=== PATIENT | male | born 1945 | race Caucasian/White ===

== ENCOUNTER 2023-04-12 04:56 | Inpatient (IN) | payer OTHER, SELFPAY ==
[2022-12-29 07:43] VITALS: BP 102/50; BP 122/56; BP 134/66; BMI 34.3
[2023-04-12] VITALS (11 sets, daily range): BP systolic 127–175; BP diastolic 47–73; PULSE 50–65; RESP 13–21; TEMP 36.6–37.3; O2SAT 93–99; BMI 35.0
--- NOTE | 2023-04-12 | ECG_ITS ---
Test Reason : FALL Blood Pressure : / mmHG Vent. Rate : 050 BPM Atrial Rate : 000 BPM P-R Int : 000 ms QRS Dur : 146 ms QT Int : 508 ms P-R-T Axes : 000 -43 005 degrees QTc Int : 463 ms Sinus bradycardia Left axis deviation Right bundle branch block Inferior infarct , age undetermined Abnormal ECG When compared with ECG of 15-JAN-2013 03:21, Vent. rate has decreased BY 37 BPM QRS duration has increased Referred By: Generic ED Physician Electronically Signed By:MEI LOVE
--- NOTE | ~2023-04-12 | XR_ITS ---
EXAMINATION: XR CHEST XR LEFT HIP/PELVIS CLINICAL INFORMATION: Status post fall. Chest pain. Left hip pain. COMPARISON: 01/15/2013 TECHNIQUE: 2 views of the chest were obtained. AP view of the pelvis was obtained. 2 views of the left hip were obtained. FINDINGS: Chest: The hemithoraces are clear without confluent consolidation. There is a stent at the aortic root. Cardiac silhouette appears prominent. No significant pleural effusion. There is a nonspecific sclerotic focus within the left proximal humerus. Pelvis/Left hip: Comminuted impacted intertrochanteric fracture of the left femur. The femoral head remains seated within the acetabulum. There is distraction of the lesser trochanter fragment. Regional soft tissue swelling. The sacrum is mostly obscured by overlying bowel gas. The pubic symphysis is intact. There is mild cartilage space loss of the right hip. XR/XR hip LT w PEL1V IMPRESSION: As above.
--- NOTE | ~2023-04-12 | CT_ITS ---
EXAMINATION: CT HEAD WITHOUT CONTRAST CT CERVICAL SPINE WITHOUT CONTRAST CLINICAL INFORMATION: Head injury. Patient on blood thinners. Pain. COMPARISON: None available. TECHNIQUE: Contiguous axial imaging was performed through the head and cervical spine without intravenous administration of contrast. This CT examination was performed using dose optimization techniques as appropriate, variously including the following: *Automated exposure control *Adjustment of mA and/or kV according to patient size (this includes techniques or standardized protocols for targeted exams where dose is matched to indication/reason for exam; i.e. extremities or head) *Use of iterative reconstruction technique DLP: 1364 mGy-cm FINDINGS: The lateral, third and fourth ventricles are normally outlined. The cortical sulci and basal cisterns are normally outlined as well. There is minimal bilateral periventricular and central white matter diminished attenuation. There is no acute territorial defect, hemorrhage or midline shift. The extra-axial spaces are unremarkable. Calvarium: Intact. Maxillofacial sinuses and mastoids: Clear as visualized. Cervical spine: There is straightening of the expected cervical spine curvature. There is moderate diffuse cervical disc degenerative change with loss of disc space, endplate change and posterior osteophytes associated with diffuse moderate facet osteoarthritic hypertrophic change with multilevel mild spinal canal and multilevel [id number] neuroforaminal narrowing. The there is no fracture. The soft tissues are unremarkable. In the upper lung adams are clear. CT/CT cervical spine wo IV con IMPRESSION: No acute intracranial abnormality. Cervical disc degenerative change. No fracture.
--- NOTE | ~2023-04-12 | XR_ITS ---
EXAMINATION: XR CHEST XR LEFT HIP/PELVIS CLINICAL INFORMATION: Status post fall. Chest pain. Left hip pain. COMPARISON: 01/15/2013 TECHNIQUE: 2 views of the chest were obtained. AP view of the pelvis was obtained. 2 views of the left hip were obtained. FINDINGS: Chest: The hemithoraces are clear without confluent consolidation. There is a stent at the aortic root. Cardiac silhouette appears prominent. No significant pleural effusion. There is a nonspecific sclerotic focus within the left proximal humerus. Pelvis/Left hip: Comminuted impacted intertrochanteric fracture of the left femur. The femoral head remains seated within the acetabulum. There is distraction of the lesser trochanter fragment. Regional soft tissue swelling. The sacrum is mostly obscured by overlying bowel gas. The pubic symphysis is intact. There is mild cartilage space loss of the right hip. XR/XR chest 1V IMPRESSION: As above.
--- NOTE | ~2023-04-12 | FL_ITS ---
EXAMINATION: XR FL WITH IMAGES CLINICAL INFORMATION: ORIF left hip. COMPARISON: None available. TECHNIQUE: Fluoroscopy Supervised By: Tech KV. Fluoroscopy Time: 1.1 minute. Cumulative Dose: 61.0 mGy. DAP: 1.04 Gycm2. Images: 4. FINDINGS: Imaging shows placement of an intramedullary cathy and screw in the left femur with an intertrochanteric fracture. FL/FL guidance in OR IMPRESSION: Fluoroscopy provided for ORIF left intertrochanteric fracture. Please see Dr. Kapil Law's procedure report for complete details.
--- NOTE | ~2023-04-12 | CT_ITS ---
EXAMINATION: CT HEAD WITHOUT CONTRAST CT CERVICAL SPINE WITHOUT CONTRAST CLINICAL INFORMATION: Head injury. Patient on blood thinners. Pain. COMPARISON: None available. TECHNIQUE: Contiguous axial imaging was performed through the head and cervical spine without intravenous administration of contrast. This CT examination was performed using dose optimization techniques as appropriate, variously including the following: *Automated exposure control *Adjustment of mA and/or kV according to patient size (this includes techniques or standardized protocols for targeted exams where dose is matched to indication/reason for exam; i.e. extremities or head) *Use of iterative reconstruction technique DLP: 1364 mGy-cm FINDINGS: The lateral, third and fourth ventricles are normally outlined. The cortical sulci and basal cisterns are normally outlined as well. There is minimal bilateral periventricular and central white matter diminished attenuation. There is no acute territorial defect, hemorrhage or midline shift. The extra-axial spaces are unremarkable. Calvarium: Intact. Maxillofacial sinuses and mastoids: Clear as visualized. Cervical spine: There is straightening of the expected cervical spine curvature. There is moderate diffuse cervical disc degenerative change with loss of disc space, endplate change and posterior osteophytes associated with diffuse moderate facet osteoarthritic hypertrophic change with multilevel mild spinal canal and multilevel [id number] neuroforaminal narrowing. The there is no fracture. The soft tissues are unremarkable. In the upper lung adams are clear. CT/CT head/brain wo IV con IMPRESSION: No acute intracranial abnormality. Cervical disc degenerative change. No fracture.
[2023-04-12 05:56] LABS: MANUAL DIFF FLAG NO
[2023-04-12 05:57] LABS: Basophils Percent Auto 0.3 % (0-2); Eosinophils Absolute Auto 0.1 X10*3/uL (0.0-0.4); Hematocrit 32.7 % (42.0-52.0); Hemoglobin 9.7 g/dl (14.0-18.0); Imm Gran Abs Auto 0.04 X10*3/uL (0.00-0.03); Imm Gran Pct Auto 0.4 % (0.0-0.4); Lymphocytes Absolute Auto 0.8 X10*3/uL (1.2-4.9); Lymphocytes Percent Auto 7.6 % (20-40); Mean Corpuscular HGB Conc 29.7 g/dl (31.0-36.0); Mean Corpuscular Hemoglobin 27.4 pg (27.0-33.0); Mean Corpuscular Volume 92.4 fL (80.0-98.0); Mean Platelet Volume 9.7 fL (9.4-12.4); Monocytes Absolute Auto 0.7 X10*3/uL (0.1-1.2); Monocytes Percent Auto 6.8 % (2-11); Neutrophils Absolute Auto 8.8 x10*3/uL (2.0-8.3); Neutrophils Percent Auto 83.9 % (45-73); Platelet Count 169 X10*3/uL (160-400); Red Blood Count 3.54 X10*6/uL (4.60-5.80); Red Cell Distribution Width 16.6 % (11.0-16.0); White Blood Count 10.5 X10*3/uL (4.8-10.8)
[2023-04-12 06:14] LABS: Alanine Aminotransferase 9 U/L (0-40); Albumin Level 3.6 g/dL (3.5-5.0); Alkaline Phosphatase 71 U/L (39-117); Anion Gap 12 (12-20); Aspartate Amino Transferase 18 U/L (5-37); Bilirubin Total 0.5 mg/dL (0.0-1.0); Blood Urea Nitrogen 22 mg/dL (9-16); Calcium 8.8 mg/dL (8.4-10.2); Carbon Dioxide 25 mmol/L (22-29); Chloride 111 mmol/L (96-108); Creatinine Clr Calc Pharmacy 62.6; Estimated Glomerular Filt Rate 48; Glucose Random 137 mg/dL (60-115); Lipase 40 U/L (8-78); Potassium 3.7 mmol/L (3.3-5.1); Sodium 144 mmol/L (135-145); Total Protein 6.2 g/dL (6.5-8.0)
[2023-04-12 06:21] LABS: COVID-19 Test Negative (Negative); IDNOW Serial# BCCEAD1C; INTERNATIONAL NORM RATIO 1.7 (0.9-1.1); Prothrombin Time 20.5 SEC (11.1-13.3)
[2023-04-12 06:24] LABS: Partial Thromboplastin Time 32.8 SEC (26.0-36.4)
--- NOTE | 2023-04-12 06:51 | ED.FALL ---
HPI - Fall General Chief Complaint: Fall Stated Complaint: fall Time Seen by Provider: 04/12/23 06:40 Source: patient and EMS Mode of arrival: EMS Limitations: no limitations History of Present Illness HPI Narrative: 77 yo male with PMHx significant for afib on Xarelto presents to the ED via EMS s/p mechanical fall after slipping on water in the bathroom at 0330 this morning. Patient reports falling down onto his left side, was unable to stand or ambulate afterwards. Reports hitting his head. On AC. Admits to 05/04 left hip pain, received fentanyl EN route via EMS. His only complaint in the ED is right hip pain and inability to move his right leg secondary to pain. Denies headache, vision changes, speech changes, chest pain, SOB, neck or back pain, abdominal pain, bowel or bladder incontinence or retention, or tingling/numbness/weakness of the extremity. Related Data Home Medications Medication Instructions Recorded Confirmed amiodarone 200 mg tablet 100 mg PO DAILY 04/12/23 04/12/23 ferrous sulfate 324 mg (65 mg 324 mg PO DAILY 04/12/23 04/12/23 iron) tablet,delayed release furosemide 40 mg tablet 40 mg PO BID 04/12/23 04/12/23 metoprolol tartrate 37.5 mg tablet 37.5 mg PO BID 04/12/23 04/12/23 rivaroxaban 20 mg tablet (Xarelto) 20 mg PO DAILY@1700 04/12/23 04/12/23 simvastatin 20 mg tablet 20 mg PO BEDTIME 04/12/23 04/12/23 Allergies Allergy/AdvReac Type Severity Reaction Status Date / Time No Known Allergies Allergy Unverified 04/11/20 18:33 Review of Systems Review of Systems: Constitutional: No fever, No chills, No fatigue, No malaise ENT/Mouth: No ear pain, No hearing loss, No nasal congestion, No sinus pain, No rhinorrhea, No sore throat Eyes: No eye pain, No swelling, No redness, No vision changes, No foreign body, No discharge Cardio: No chest pain, No palpitations, No dyspnea on exertion, No orthopnea, No edema Respiratory: No SOB, No cough, No sputum, No wheezing, No dyspnea, No hemoptysis GI: No nausea, No vomiting, No hematemesis, No abdominal pain, No diarrhea, No constipation, No hematochezia, No melena : No irregular bleeding, No dysuria, No frequency, No urgency, No hesitancy, No hematuria, No flank pain, No urinary flow changes, No urinary incontinence or retention MSK: No back pain, No neck pain, + joint pain, No myalgias Skin: No skin lesions, No rashes Neuro: No weakness, No numbness, No paresthesias, No LOC, No dizziness, No headache All other systems reviewed are negative. [facility] Past Medical History Attestation statement: The following information was validated with the patient. Source: old records reviewed and nursing notes reviewed Social History Social History Alcohol intake: former Patient Tobacco Use Status: Former Tobacco user service: No Physical Exam Vital Signs: Vital Signs: Last Vital Signs Temp 98.6 F 04/12/23 16:58 Pulse 62 04/12/23 16:58 Resp 16 04/12/23 16:58 BP 129/49 L 04/12/23 16:58 Pulse Ox 96 04/12/23 16:58 O2 Del Method Room Air 04/12/23 16:58 O2 Flow Rate 97 04/12/23 09:34 BMI result Body Mass Index 35.0 Vital signs stable General: Nontoxic appearing. NAD. Skin: Warm and dry. No rashes or lesions. Head: Normocephalic, atraumatic. EENT: PERRLA. EOM intact. Pharynx normal. Neck: Supple without LAD. Normal ROM. Trachea midline. Cardiac: Chest wall symmetric. RRR. S1 and S1 appreciated. No MRG. No JVD. Lungs: CTA bilaterally. No rales, rhonchi, or wheezes. Normal respiratory effort without accessory muscle use. No flail chest. Abdomen: No visible lesions or scars. Soft, non-tender, non-distended. No rebound tenderness or guarding. Normoactive BS x4. Spine: No midline spinous tenderness. No deformity or step off. Pelvis stable Ext: Upper extremities atraumatic with full ROM. Left LE shortened and externally rotated with decreased ROM of the left hip and left knee. RLE normal, atraumatic. Bilateral lower extremities with 2+ edema. Capillary refill <2 seconds throughout. 2+ DP/PT pulses. No cyanosis, ecchymosis, clubbing. Neuro: AO x3. Normal speech. CN 2-12 grossly intact. Strength 5/5 to upper extremities and RLE. Unable to assess RLE strength.. Sensation intact to light touch throughout. NV intact distally. Patient unable to stand or ambulate. Psych: Appropriate mood and affect. Responds appropriately to questions. Course Course Course Narrative: 726-- patient mildly anemic, no priors to compare to. No leukocytosis. Increased PT/INR secondary to anticoagulation. Chemistry without acute electrolyte abnormalities requiring intervention. COVID negative. CT head without intracranial pathology or bleed. CT C-spine without acute fracture. Chest x-ray and hip/pelvis x-ray pending. > patient with 10/10 left hip pain, given 100 mcg fentanyl EN route > will give 2g morphine 0835-- CXR unremarkable. X-ray of the pelvis/left hip with comminuted impacted intertrochanteric fracture of the left femur with the femoral head in the acetabulum. Soft tissue swelling. Pelvis intact. 45-- Discussed case with on-call orthopedic surgeon, Dr. Law, who recommends admitting patient to medicine with surgery scheduled for tomorrow pending clearance. Will hold Xarelto. Will reach out to hospitalist, Graciela Da Silva, to have patient admitted. 09-- Admitted to medicine > Hospitalist team via Rossi Da Silva will put in admission orders. Medications Administered Generic Name Dose Route Start Last Admin Trade Name Freq PRN Reason Stop Dose Admin Morphine Sulfate 2 mg 04/12/23 10:21 04/12/23 17:44 Morphine Sulfate 2 Mg/Ml Cartridge IVPUSH 2 mg Q4H PRN Administration moderate pain Protocol Sodium Chloride 3 ml 04/12/23 16:00 04/12/23 15:53 0.9 % Sodium Chloride Flush 3 Ml Syringe IVFLUSH 3 ml QSHIFT DANELLE Administration Discontinued Medications Generic Name Dose Route Start Last Admin Trade Name Freq PRN Reason Stop Dose Admin Amiodarone HCl 100 mg 04/12/23 15:55 04/12/23 16:06 Amiodarone Hcl 200 Mg Tablet PO 04/12/23 15:56 100 mg ONCE ONE Administration Morphine Sulfate 2 mg 04/12/23 07:24 04/12/23 07:32 Morphine Sulfate 2 Mg/Ml Cartridge IVPUSH 04/12/23 07:25 2 mg ONCE ONE Administration Protocol Medical Decision Making Medical Decision Making [facility] Narrative: 77 yo male with PMHx significant for afib on Xarelto presents to the ED via EMS s/p mechanical fall after slipping on water in the bathroom at 0330 this morning. Vital signs stable. Exam notable for LLE shortened and externally rotated, sensation intact to light touch throughout, NV intact distally, 2+ DP and PT pulses bilaterally, 2+ putting edema to b/l LE, no cyanosis. PERRLA. Lungs CTA bilaterally. Nonfocal exam. Unable to assess ambulation. Clinical concern for hip dislocation vs fracture. Unlikely pelvic fracture or instability. Concern for ICH vs skull fracture vs cervical fracture > will obtain imaging. Low suspicion for NV compromise, osteomyelitis, septic joint, compartment syndrome, or threat to limb. Differential Diagnosis Differential Diagnoses: The differential diagnosis associated with the presentation includes Clinical concern for hip dislocation vs fracture. Unlikely pelvic fracture or instability. Concern for ICH vs skull fracture vs cervical fracture > will obtain imaging. Low suspicion for NV compromise, osteomyelitis, septic joint, compartment syndrome, or threat to limb. Admission/Observation Consideration of admission/observation: Escalation of care including admission/observation considered This 77-year-old patient with intertrochanteric fracture will be admitted. Consult Healthcare Provider Management of the patient was discussed with: Hospitalist (Graciela Da Silva) and Gasfitter (Dr. Law (ortho)) Lab Data [facility] Lab Attestation statement: I reviewed the patient's lab results. See above course narrative. 04/12/23 05:45 04/12/23 05:45 Labs: Lab Results 04/12/23 04/12/23 Range/Units 05:45 05:49 WBC 10.5 (4.8-10.8) X10*3/uL RBC 3.54 L (4.60-5.80) X10*6/uL Hgb 9.7 L (14.0-18.0) g/dl Hct 32.7 L (42.0-52.0) % MCV 92.4 (80.0-98.0) fL MCH 27.4 (27.0-33.0) pg MCHC 29.7 L (31.0-36.0) g/dl RDW 16.6 H (11.0-16.0) % Plt Count 169 (160-400) X10*3/uL MPV 9.7 (9.4-12.4) fL Immature Gran % (Auto) 0.4 (0.0-0.4) % Neut % (Auto) 83.9 H (45-73) % Lymph % (Auto) 7.6 L (20-40) % Sebastian % (Auto) 6.8 (2-11) % Eos % (Auto) 1.0 (0-4) % Baso % (Auto) 0.3 (0-2) % Lymph # (Auto) 0.8 L (1.2-4.9) X10*3/uL Sebastian # (Auto) 0.7 (0.1-1.2) X10*3/uL Eos # (Auto) 0.1 (0.0-0.4) X10*3/uL Baso # (Auto) 0.0 (0.0-0.2) X10*3/uL Abs Immat Gran (auto) 0.04 H (0.00-0.03) X10*3/uL Absolute Neuts (auto) 8.8 H (2.0-8.3) x10*3/uL Absolute Nucleated RBC 0.000 (0.0-0.012) X10*3/uL Nucleated RBC % (auto) 0.0 (0.0-0.2) /100WBC PT 20.5 H (11.1-13.3) SEC INR 1.7 H (0.9-1.1) APTT 32.8 (26.0-36.4) SEC Sodium 144 (135-145) mmol/L Potassium 3.7 (3.3-5.1) mmol/L Chloride 111 H (96-108) mmol/L Carbon Dioxide 25 (22-29) mmol/L Anion Gap 12 (12-20) BUN 22 H (9-16) mg/dL Creatinine 1.44 H (0.5-1.4) mg/dL Estim Creat Clear Calc 62.6 Estimated GFR 48 Random Glucose 137 H (60-115) mg/dL Calcium 8.8 (8.4-10.2) mg/dL Total Bilirubin 0.5 (0.0-1.0) mg/dL AST 18 (5-37) U/L ALT 9 (0-40) U/L Alkaline Phosphatase 71 (39-117) U/L Total Protein 6.2 L (6.5-8.0) g/dL Albumin 3.6 (3.5-5.0) g/dL Lipase 40 (8-78) U/L COVID-19 (DOC) Negative (Negative) COVID-19 Clin Com See Note Blood Type A Positive Antibody Screen NEGATIVE Independent Interpretation I performed an independent interpretation of an: EKG, Plain X-Ray and CT Scan Interpretation: EKG with sinus bradycardia at 50 bpm, RBB and previous inferior infarct, no acute ischemic changes. CT head without intracranial pathology, agree with radiologist's interpretation. CT C-spine without acute fracture, agree with radiologist's interpretation. X-ray of the left hip with intertrochanteric fracture, agree with radiologist's interpretation. Chest x-ray without consolidation, rib fractures, or pneumothorax, agree with radiologist's interpretation. Radiology Impression Discussion of test interpretation with radiology: I have reviewed the radiologist's reading. Radiologist Impression: CT cervical spine/ head/brain wo IV con IMPRESSION: No acute intracranial abnormality. Cervical disc degenerative change. No fracture. EXAMINATION: XR CHEST XR LEFT HIP/PELVIS COMPARISON: 01/15/2013 FINDINGS: Chest: The hemithoraces are clear without confluent consolidation. There is a stent at the aortic root. Cardiac silhouette appears prominent. No significant pleural effusion. There is a nonspecific sclerotic focus within the left proximal humerus. Pelvis/Left hip: Comminuted impacted intertrochanteric fracture of the left femur. The femoral head remains seated within the acetabulum. There is distraction of the lesser trochanter fragment. Regional soft tissue swelling. The sacrum is mostly obscured by overlying bowel gas. The pubic symphysis is intact. There is mild cartilage space loss of the right hip. XR/XR hip LT w PEL1V IMPRESSION: As above. Independent Historian Clinical information obtained from an independent historian. History obtained from or confirmed by: Spouse and EMS External Record Review External record reviewed: Inpatient record Prescription Management I considered prescription management with: Pain Medication Chronic Conditions Patient?s care impacted by: Other (AFib on anticoagulation) Critical Care Time Critical Care Time Critical Care Time: Yes Total Critical Care Time: 45 Attestation: Critical care time in the amount of 45 minutes has been provided to the patient in terms of direct patient care, frequent reevaluation, consultation with reinforcing iron and rebar workers orthopedic surgeon and hospitalist, review and interpretation of medical data and results, and management of potentially life-threatening conditions. This is all outside of any medical procedures. Discharge Plan Discharge Clinical Impression: Intertrochanteric fracture of left femur Qualifiers: Encounter type: initial encounter Fracture type: closed Fracture alignment: displaced Qualified Code(s): S72.142A - Displaced intertrochanteric fracture of left femur, initial encounter for closed fracture Patient Disposition: Admitted As Inpatient Interventions: Admission Worksheet (ED) Last Done: 04/12/23 18:28 Discharge Date/Time: 04/12/23 18:29
--- NOTE | 2023-04-12 07:15 | PC.NURSE ---
Addendum entered by Josefa Padgett 04/12/23 07:27: LE not equal bilaterally. lack of mobility and strength in LLE. pt reports pain and difficulty with movement. Original Note: pt a&ox3, vss and up to date, nsr/sinus carl on the traffic monitor specialist. pt c/o 04/04 left hip/leg pain that worsens upon movement. pt states that pain decreases when he keeps his LLE flexed. CMS intact. strength equal bilaterally on LE. pt resting comfortably in no apparent distress. respirations even and unlabored. pt's bedside for support. call franklin placed within reach.
[2023-04-12] MEDS: Morphine Sulfate 2 MG/ML CARTRIDGE IVPUSH ×2 (07:32→17:44)
--- NOTE | 2023-04-12 07:37 | PC.NURSE ---
medication administered per provider order.
--- NOTE | 2023-04-12 08:32 | PC.NURSE ---
pain level reassessed post medication administration. pt states that medication was effective. pt resting comfortably in no apparent distress. speaking w/ provider. respirations even and unlabored. call franklin placed within reach.
--- NOTE | 2023-04-12 09:35 | PC.NURSE ---
vss and up to date. pt resting comfortably in no apparent distress. pt verbalizes that there has been no change in pain level - rates it a 2/10 when not moving and then rates it pain a 9/10 when trying to reposition himself. pt's temperature seems to be climbing since this RN came on the floor. pt's skin warm to the touch. pt denies chills at this time. pt's bedside asking if she is able to speak with a provider about what the plan of care is. pt also concerned about hgb and hct levels being low and his hx of blood transfusions. will notify the provider. pt currently resting comfortably in no apparent distress. call franklin placed within reach.
--- NOTE | 2023-04-12 10:23 | P.HPHOSP_ITS ---
History of Present Illness Date of Service: 04/12/23 Chief Complaint: hip pain 77M PMH obesity, paroxysmal afib, alyce, DM (now off meds), HTN, aortic stenosis s/p TAVR, presented with left hip pain after mechanical fall. Patient slipped on water at 3am day of admission. fell and had pain on left hip. found to have left hip fracture. denies LOC, other work up negative. patient on xarleto for afib, last dose 04/11/23. Review of Systems 2 Review of Systems: Yes all other systems are reviewed and are negative [facility] Social History Alcohol intake: former Patient Tobacco Use Status: Former Tobacco user Smoked in Last 30 Days: No Use of substances other than those prescribed or required for medical reasons: No Advance Directives: No Advance Directives Information Provided: Yes Meds Allergies Allergy/AdvReac Type Severity Reaction Status Date / Time No Known Allergies Allergy Unverified 04/11/20 18:33 Active Medications: Current Medications Morphine Sulfate (Morphine Sulfate 2 Mg/Ml Cartridge) 2 mg IVPUSH Q4H PRN; Protocol PRN Reason: moderate pain Sodium Chloride (0.9 % Sodium Chloride Flush 3 Ml Syringe) 3 ml IVFLUSH QSHIFT [facility] Physical Exam 2 Vital Signs and Narrative: Vital Signs: Last Vital Signs Temp 99.2 F 04/12/23 09:34 Pulse 57 04/12/23 09:34 Resp 16 04/12/23 09:34 BP 139/56 L 04/12/23 09:34 Pulse Ox 95 04/12/23 09:34 O2 Del Method Room Air 04/12/23 09:34 O2 Flow Rate 97 04/12/23 09:34 BMI result Body Mass Index 35.0 General: AO X 3, no acute distress Resp: CTA bilateral, no accessory muscles used CVS: S1,S2,RRR GI: soft, non tender, non distended Neuro: motor grossly intact, alert Psych: appropriate affect, appropriate insight Results Labs 04/12/23 05:45 04/12/23 05:45 Labs: Laboratory Results - last 24 hr 04/12/23 04/12/23 05:45 05:49 MCV 92.4 MCH 27.4 MCHC 29.7 L RDW 16.6 H Plt Count 169 MPV 9.7 Immature Gran % (Auto) 0.4 Neut % (Auto) 83.9 H Lymph % (Auto) 7.6 L [place] % (Auto) 6.8 Eos % (Auto) 1.0 Baso % (Auto) 0.3 Lymph # (Auto) 0.8 L [place] # (Auto) 0.7 Eos # (Auto) 0.1 Baso # (Auto) 0.0 Abs Immat Gran (auto) 0.04 H Absolute Neuts (auto) 8.8 H Absolute Nucleated RBC 0.000 Nucleated RBC % (auto) 0.0 PT 20.5 H INR 1.7 H APTT 32.8 Anion Gap 12 Estim Creat Clear Calc 62.6 Estimated GFR 48 Random Glucose 137 H Calcium 8.8 Total Bilirubin 0.5 AST 18 ALT 9 Alkaline Phosphatase 71 Total Protein 6.2 L Albumin 3.6 Lipase 40 COVID-19 (DOC) Negative COVID-19 Clin Com See Note Blood Type A Positive Antibody Screen NEGATIVE Imaging Radiologist's Impressions: Impressions Chest X-Ray 04/12/23 06:33 IMPRESSION: As above. Hip/Pelvis X-Ray 04/12/23 06:33 IMPRESSION: As above. Cervical Spine CT 04/12/23 06:43 IMPRESSION: No acute intracranial abnormality. Cervical disc degenerative change. No fracture. Head CT 04/12/23 06:44 IMPRESSION: No acute intracranial abnormality. Cervical disc degenerative change. No fracture. Assessment and Plan (1) Intertrochanteric fracture of left femur: Status: Acute Plan 77M PMH obesity, alyce, paroxysmal afib, DM (now off meds), HTN, aortic stenosis s/p TAVR, presented with left hip pain after mechanical fall found to have left hip fracture acute left hip fracture due to mechanical fall patient moderate risk for moderate risk surgery, benefits outweigh risks plan for surgery 04/13/23 ALYCE cpap obesity wegiht loss paroxysmal afib amio, holding xarelto for surgery full code patient with hip fracture needing surgery, expected to require atleast 2 midnights inpatient. Time Spent With Patient Time: Total time managing care of this patient today ____ minutes. Quality Stroke Does the patient have a stroke diagnosis?: No VTE Prior VTE?: No VTE Risk Level:: Medical - moderate - high VTE Device Contraindication: Treatment Not Indicated VTE Drug Contraindication: N/A - Med Ordered
--- NOTE | 2023-04-12 10:40 | PHA.MEDREC ---
Pharmacy Consult ? Medication Reconciliation Pharmacy has completed the medication reconciliation. Patient's at bedside with list of medications on her phone
--- NOTE | 2023-04-12 12:03 | P.PNOP_ITS ---
Subjective Subjective Date of Service: 04/12/23 Physical Exam Vital Signs: Vital Signs: Last Vital Signs Temp 98.5 F 04/12/23 11:08 Pulse 61 04/12/23 11:08 Resp 21 H 04/12/23 11:08 BP 137/53 L 04/12/23 11:08 Pulse Ox 95 04/12/23 11:08 O2 Del Method Room Air 04/12/23 11:08 O2 Flow Rate 97 04/12/23 09:34 BMI result Body Mass Index 35.0 Procedures Date of Service Date of Service: 04/12/23 Progress Note: A&P Assessment and plan (1) Intertrochanteric fracture of left femur: Status: Acute Assessment and Plan: I discussed the case with Dr Law and explained the extent of the injury to the patient and options available which include surgical intervention. I explained the procedure in detail along with the length of recovery and rehab course. I explained the risk, benefits and alternatives. Risk including, but not limited to infection, blood clots, bleeding, non union or malunion and nerve/tissue damage to surrounding areas. I answered all their questions and wit h their understanding they have consented to move forward with Operative Fixation of ( ) . The patient will be T&S, med clearance obtained . He is on xarelto; therefore this will need to be help for 48 hrs prior to surgery. Time Spent With Patient Time: Total time managing care of this patient today ____ minutes. Quality Stroke Does the patient have a stroke diagnosis?: No VTE Prior VTE?: No VTE Risk Level:: Medical - moderate - high VTE Device Contraindication: Treatment Not Indicated VTE Drug Contraindication: N/A - Med Ordered
--- NOTE | 2023-04-12 12:14 | PC.NURSE ---
contact info Janeth Art [phone]
--- NOTE | 2023-04-12 12:28 | P.CONOP_ITS ---
History of Present Illness HPI Consult date: 04/12/23 Chief complaint: Hip fracture Narrative: 77 yo male with PMH pAfib on xarelto, DM, HTN, aortic stenosis s/p TAVR admitted to the medical service after sustaining a fall resulting in a left hip fracture. He states he was walking in the bathroom when he slipped on water and fell. He was unable to get up due to the pain. EMS transported him to the ED. xrays were significant for left intertrochanteric fracture of the femur . The patient was admitted to the medical service and orthopedics was consulted for further recommendations. Review of Systems 2 Review of Systems: per [facility] Social History Social History Alcohol intake: former Patient Tobacco Use Status: Former Tobacco user Smoked in Last 30 Days: No Use of substances other than those prescribed or required for medical reasons: No Advance Directives: No Advance Directives Information Provided: Yes Nutrition Risks: No Nutritional Risk service: No Meds Allergies Allergy/AdvReac Type Severity Reaction Status Date / Time No Known Allergies Allergy Unverified 04/11/20 18:33 Active Medications: Current Medications Morphine Sulfate (Morphine Sulfate 2 Mg/Ml Cartridge) 2 mg IVPUSH Q4H PRN; Protocol PRN Reason: moderate pain Sodium Chloride (0.9 % Sodium Chloride Flush 3 Ml Syringe) [facility] Medications Medication Instructions Recorded Confirmed Last Taken Type amiodarone 200 mg tablet 100 mg PO DAILY 04/12/23 04/12/23 04/11/23 History ferrous sulfate 324 mg (65 mg 324 mg PO DAILY 04/12/23 04/12/23 Unknown History iron) tablet,delayed release furosemide 40 mg tablet 40 mg PO BID 04/12/23 04/12/23 04/11/23 History metoprolol tartrate 37.5 mg tablet 37.5 mg PO BID 04/12/23 04/12/23 04/11/23 History rivaroxaban 20 mg tablet (Xarelto) 20 mg PO DAILY@1700 04/12/23 04/12/23 04/11/23 History simvastatin 20 mg tablet 20 mg PO BEDTIME 04/12/23 04/12/23 04/11/23 History Physical Exam 2 Vital Signs: Vital Signs: Last Vital Signs Temp 98.5 F 04/12/23 11:08 Pulse 61 04/12/23 11:08 Resp 21 H 04/12/23 11:08 BP 137/53 L 04/12/23 11:08 Pulse Ox 95 04/12/23 11:08 O2 Del Method Room Air 04/12/23 11:08 O2 Flow Rate 97 04/12/23 09:34 BMI result Body Mass Index 35.0 Const: General: cooperative, healthy appearing, comfortable, no acute distress, well developed and alert Orientation/consciousness: patient oriented x3 HEENT: Head: Yes normal to inspection, Yes normocephalic and Yes atraumatic Eyes: General: appearance normal, both eyes and all related structures Neck: Neck: Yes normal visual inspection and Yes no lymphadenopathy Resp: Effort & Inspection: normal respiratory effort and able to speak in complete sentences Cardio: Rate: regular rate Peripheral pulses: Peripheral pulses 2+ throughout GI: Inspection: Yes normal to inspection Palpation (GI): Soft to palpation Skin: General skin exam: no rashes or lesions noted Neuro: General: patient oriented x3 Extrem: Other: left hip shortened and ER, pain with log roll, unable to SLr. NVI Psych: Appearance: grossly normal Mental Status: mental status grossly normal Results Labs 04/12/23 05:45 04/12/23 05:45 Labs: Abnormal lab results 04/12/23 Range/Units 05:45 RBC 3.54 L (4.60-5.80) X10*6/uL Hgb 9.7 L (14.0-18.0) g/dl Hct 32.7 L (42.0-52.0) % MCHC 29.7 L (31.0-36.0) g/dl RDW 16.6 H (11.0-16.0) % Neut % (Auto) 83.9 H (45-73) % Lymph % (Auto) 7.6 L (20-40) % Lymph # (Auto) 0.8 L (1.2-4.9) X10*3/uL Abs Immat Gran (auto) 0.04 H (0.00-0.03) X10*3/uL Absolute Neuts (auto) 8.8 H (2.0-8.3) x10*3/uL PT 20.5 H (11.1-13.3) SEC INR 1.7 H (0.9-1.1) Chloride 111 H (96-108) mmol/L BUN 22 H (9-16) mg/dL Creatinine 1.44 H (0.5-1.4) mg/dL Random Glucose 137 H (60-115) mg/dL Total Protein 6.2 L (6.5-8.0) g/dL H & H 04/12/23 Range/Units 05:45 Hgb 9.7 L (14.0-18.0) g/dl Hct 32.7 L (42.0-52.0) % Coagulation 04/12/23 Range/Units 05:45 INR 1.7 H (0.9-1.1) All other labs normal. Assessment and Plan (1) Intertrochanteric fracture of left femur: Qualifiers: Encounter type: initial encounter Fracture alignment: displaced F racture type: closed Qualified Code(s): S72.142A - Displaced intertrochanteric fracture of left femur, initial encounter for closed fracture Status: Acute Plan I discussed the case with Dr Law and explained the extent of the injury to the patient and options available which include surgical intervention. I explained the procedure in detail along with the length of recovery and rehab course. I explained the risk, benefits and alternatives. Risk including, but not limited to infection, blood clots, bleeding, non union or malunion and nerve/tissue damage to surrounding areas. I answered all their questions and with their understanding they have consented to move forward with Operative Fixation of the left hip . The patient will be T&S, med clearance obtained and Xarelto will need to be held for 48 hrs. Time Spent With Patient Time: Total time managing care of this patient today ____ minutes. Procedures Date of Service Date of Service: 04/12/23
--- NOTE | 2023-04-12 15:24 | MHC.CM.PN ---
Met w/pt to review d/c planning needs: pt resides w/spouse, independent at baseline: uses a CPAP and cane. No services and states spouse can transport if needed. Pt is holding d/t anticoag and need for hip ORIF: will likely need STR: receptive to broad referrals in the [place] area. PCP Marcin Lorenzo, HCP to be brought in by spouse: Vax x3: none recently CM to follow for finalization of d/c needs.
[2023-04-12] MEDS: 0.9 % Sodium Chloride Flush 3 ML SYRINGE IVFLUSH ×2 (15:53→20:12)
--- NOTE | 2023-04-12 15:55 | PC.NURSE ---
pt remains in no apparent distress. vss and up to date. nsr on the public health veterinarian. pt just informed this rn that he usually takes 100mg amiodarone and 37.5mg of metoprolol every morning but did not receive morning dose today. this rn asked pt why he did notify this rn - pt states that he forgot. admitting provider notified.
[2023-04-12] MEDS: Amiodarone HCL 200 MG TABLET 100 MG PO (16:06)
--- NOTE | 2023-04-12 16:07 | PC.NURSE ---
pt medicated per order
--- NOTE | 2023-04-12 17:11 | PC.NURSE ---
attempted to give report to RN on [facility]- RN unavailable at this time. states they will call back shortly.
--- NOTE | 2023-04-12 17:31 | PC.NURSE ---
report given to Teetee VILLANUEVA on [facility]. will notify transport.
--- NOTE | 2023-04-12 17:47 | PC.NURSE ---
PRN medication administered per provider order. pt c/o left hip pain. will reassess pain level shortly.
[2023-04-12] MEDS: Metoprolol Tartrate 12.5 MG HALFTAB 37.5 MG PO (20:11)
[2023-04-12] MEDS: Atorvastatin Calcium 10 MG TABLET PO (20:11)
[2023-04-13 04:00] VITALS: BP 138/62; PULSE 61; RESP 16; TEMP 36.8; O2SAT 94
[2023-04-13] MEDS: Morphine Sulfate 2 MG/ML CARTRIDGE IVPUSH ×3 (05:22→23:28)
[2023-04-13 06:46] VITALS: BP 146/64; PULSE 60; RESP 19; TEMP 36.1; O2SAT 96
[2023-04-13 07:28] LABS: Hematocrit 26.2 % (42.0-52.0); Hemoglobin 7.8 g/dl (14.0-18.0); Mean Corpuscular HGB Conc 29.8 g/dl (31.0-36.0); Mean Corpuscular Hemoglobin 27.4 pg (27.0-33.0); Mean Corpuscular Volume 91.9 fL (80.0-98.0); Platelet Count 155 X10*3/uL (160-400); Red Blood Count 2.85 X10*6/uL (4.60-5.80); Red Cell Distribution Width 16.7 % (11.0-16.0); White Blood Count 10.2 X10*3/uL (4.8-10.8)
[2023-04-13 07:40] LABS: Anion Gap 12 (12-20); Blood Urea Nitrogen 17 mg/dL (9-16); Calcium 8.6 mg/dL (8.4-10.2); Carbon Dioxide 25 mmol/L (22-29); Chloride 109 mmol/L (96-108); Creatinine Clr Calc Pharmacy 91.1; Estimated Glomerular Filt Rate > 60; Glucose Fasting 128 mg/dL (60-99); Potassium 3.3 mmol/L (3.3-5.1); Sodium 143 mmol/L (135-145)
--- NOTE | 2023-04-13 08:33 | HO.PM.IMPN ---
Subjective Subjective Date of Service: 04/13/23 Interval History: no complaints Physical Exam Vital Signs: Vital Signs: Last Vital Signs Temp 97 F 04/13/23 06:46 Pulse 60 04/13/23 06:46 Resp 19 04/13/23 06:46 BP 146/64 H 04/13/23 06:46 Pulse Ox 96 04/13/23 06:46 O2 Del Method BiPAP 04/13/23 06:46 O2 Flow Rate 97 04/12/23 09:34 BMI result Body Mass Index 35.0 General: AO X 3, no acute distress Resp: CTA bilateral, no accessory muscles used CVS: S1,S2,RRR GI: soft, non tender, non distended Neuro: motor grossly intact, alert Psych: appropriate affect, appropriate insight Objective Data Active Medications Amiodarone HCl (Amiodarone Hcl 200 Mg Tablet) 100 mg PO DAILY [facility] Atorvastatin Calcium (Atorvastatin Calcium 10 Mg Tablet) 10 mg PO BEDTIME [facility] Last Admin: 04/12/23 20:11 Dose: 10 mg Documented By: SUSIE Ferrous Sulfate (Ferrous Sulfate 324 Mg Tablet.Dr) 324 mg PO DAILY [facility] Metoprolol Tartrate (Metoprolol Tartrate 12.5 Mg Halftab) 37.5 mg PO BID [facility]; Protocol Last Admin: 04/12/23 20:11 Dose: 37.5 mg Documented By: SUSIE Morphine Sulfate (Morphine Sulfate 2 Mg/Ml Cartridge) 2 mg IVPUSH Q4H PRN; Protocol PRN Reason: moderate pain Last Admin: 04/13/23 05:22 Dose: 2 mg Documented By: SUSIE Sodium Chloride (0.9 % Sodium Chloride Flush 3 Ml Syringe) 3 ml IVFLUSH QSHIFT [facility] Last Admin: 04/12/23 20:12 Dose: 3 ml Documented By: SUSIE Labs 04/13/23 05:29 04/13/23 05:29 Labs: Laboratory Results - last 24 hr 04/13/23 05:29 MCV 91.9 MCH 27.4 MCHC 29.8 L RDW 16.7 H Plt Count 155 L MPV 11.0 Absolute Nucleated RBC 0.000 Nucleated RBC % (auto) 0.0 Anion Gap 12 Estim Creat Clear Calc 91.1 Estimated GFR > 60 Fasting Glucose 128 H Calcium 8.6 Assessment and Plan (1) Intertrochanteric fracture of left femur: Status: Acute Plan 77M PMH obesity, fredrick, paroxysmal afib, DM (now off meds), HTN, aortic stenosis s/p TAVR, presented with left hip pain after mechanical fall found to have left hip fracture acute left hip fracture due to mechanical fall patient moderate risk for moderate risk surgery, benefits outweigh risks plan for surgery today, 04/13/23 FREDRICK cpap obesity wegiht loss paroxysmal afib amio, holding xarelto for surgery full code reason for continued hospitalization: surgery Time Spent With Patient Time: Total time managing care of this patient today ____ minutes. Quality Stroke Does the patient have a stroke diagnosis?: No VTE Prior VTE?: No VTE Risk Level:: Medical - moderate - high VTE Device Contraindication: Treatment Not Indicated VTE Drug Contraindication: N/A - Med Ordered
[2023-04-13] MEDS: Ferrous Sulfate 324 MG TABLET.DR PO (08:55)
[2023-04-13] MEDS: Amiodarone HCL 200 MG TABLET 100 MG PO (08:55)
[2023-04-13] MEDS: Metoprolol Tartrate 12.5 MG HALFTAB 37.5 MG PO ×2 (08:55→21:08)
[2023-04-13] MEDS: 0.9 % Sodium Chloride Flush 3 ML SYRINGE IVFLUSH ×3 (08:56→21:08)
--- NOTE | 2023-04-13 09:45 | PM.EVENT ---
Event Note Date of Service: 04/13/23 Event Note: OR planned for 04/14/23 due to eliquis Time Spent With Patient Time: Total time managing care of this patient today ____ minutes.
--- NOTE | 2023-04-13 14:59 | MHC.CM.PN ---
A HCP has been documented today. The plan is OR tomorrow. The patient has 3 facilities following him. 1st [facility], 2nd [facility] and 3rd [facility]. Patient will transport via S at discharge.
[2023-04-13 15:39] VITALS: BP 116/58; PULSE 71; RESP 17; TEMP 36.9
[2023-04-13 19:32] VITALS: BP 127/60; PULSE 65; RESP 17; TEMP 35.9; O2SAT 94
[2023-04-13] MEDS: Atorvastatin Calcium 10 MG TABLET PO (21:08)
[2023-04-14] VITALS (14 sets, daily range): BP systolic 108–155; BP diastolic 47–97; PULSE 54–93; RESP 13–20; TEMP 35.7–37; O2SAT 95–100
[2023-04-14 06:34] LABS: Hematocrit 25.1 % (42.0-52.0); Hemoglobin 7.6 g/dl (14.0-18.0); Mean Corpuscular HGB Conc 30.3 g/dl (31.0-36.0); Mean Corpuscular Hemoglobin 27.7 pg (27.0-33.0); Mean Corpuscular Volume 91.6 fL (80.0-98.0); Mean Platelet Volume 10.5 fL (9.4-12.4); Platelet Count 139 X10*3/uL (160-400); Red Blood Count 2.74 X10*6/uL (4.60-5.80); Red Cell Distribution Width 16.7 % (11.0-16.0); White Blood Count 11.6 X10*3/uL (4.8-10.8)
[2023-04-14 06:50] LABS: Anion Gap 10 (12-20); Blood Urea Nitrogen 16 mg/dL (9-16); Calcium 8.7 mg/dL (8.4-10.2); Carbon Dioxide 27 mmol/L (22-29); Chloride 107 mmol/L (96-108); Creatinine Clr Calc Pharmacy 91.1; Estimated Glomerular Filt Rate > 60; Glucose Fasting 106 mg/dL (60-99); Potassium 3.7 mmol/L (3.3-5.1); Sodium 140 mmol/L (135-145)
[2023-04-14] MEDS: Amiodarone HCL 200 MG TABLET 100 MG PO (09:33)
[2023-04-14] MEDS: 0.9 % Sodium Chloride Flush 3 ML SYRINGE IVFLUSH ×3 (09:33→20:24)
[2023-04-14] MEDS: Ferrous Sulfate 324 MG TABLET.DR PO (09:33)
[2023-04-14] MEDS: Metoprolol Tartrate 12.5 MG HALFTAB 37.5 MG PO ×2 (09:34→20:24)
[2023-04-14] MEDS: Morphine Sulfate 2 MG/ML CARTRIDGE IVPUSH ×2 (09:34→22:58)
--- NOTE | 2023-04-14 09:49 | P.PNIM_ITS ---
Subjective Subjective Date of Service: 04/14/23 Interval History: no complaints Physical Exam 2 Vital Signs: Vital Signs: Last Vital Signs Temp 98 F 04/14/23 06:52 Pulse 58 04/14/23 06:52 Resp 17 04/14/23 06:52 BP 108/58 L 04/14/23 06:52 Pulse Ox 98 04/14/23 06:52 O2 Del Method Room Air 04/14/23 06:52 O2 Flow Rate 97 04/12/23 09:34 BMI result Body Mass Index 35.0 General: AO X 3, no acute distress Resp: CTA bilateral, no accessory muscles used CVS: S1,S2,RRR GI: soft, non tender, non distended Neuro: motor grossly intact, alert Psych: appropriate affect, appropriate insight Objective Data Active Medications Amiodarone HCl (Amiodarone Hcl 200 Mg Tablet) 100 mg PO DAILY [facility] Last Admin: 04/14/23 09:33 Dose: 100 mg Documented By: ALEX Atorvastatin Calcium (Atorvastatin Calcium 10 Mg Tablet) 10 mg PO BEDTIME [facility] Last Admin: 04/13/23 21:08 Dose: 10 mg Documented By: CINTHIA Ferrous Sulfate (Ferrous Sulfate 324 Mg Tablet.) 324 mg PO DAILY [facility] Last Admin: 04/14/23 09:33 Dose: 324 mg Documented By: ALEX Metoprolol Tartrate (Metoprolol Tartrate 12.5 Mg Halftab) 37.5 mg PO BID [facility]; Protocol Last Admin: 04/14/23 09:34 Dose: 37.5 mg Documented By: ALEX Morphine Sulfate (Morphine Sulfate 2 Mg/Ml Cartridge) 2 mg IVPUSH Q4H PRN; Protocol PRN Reason: moderate pain Last Admin: 04/14/23 09:34 Dose: 2 mg Documented By: ALEX Sodium Chloride (0.9 % Sodium Chloride Flush 3 Ml Syringe) 3 ml IVFLUSH QSHIFT [facility] Last Admin: 04/14/23 09:33 Dose: 3 ml Documented By: ALEX Labs 04/14/23 06:15 04/14/23 06:15 Labs: Laboratory Results - last 24 hr 04/14/23 06:15 MCV 91.6 MCH 27.7 MCHC 30.3 L RDW 16.7 H Plt Count 139 L MPV 10.5 Absolute Nucleated RBC 0.000 Nucleated RBC % (auto) 0.0 Anion Gap 10 L Estim Creat Clear Calc 91.1 Estimated GFR > 60 Fasting Glucose 106 H Calcium 8.7 Assessment and Plan (1) Intertrochanteric fracture of left femur: Status: Acute Plan 77M PMH obesity, fredrick, paroxysmal afib, DM (now off meds), HTN, aortic stenosis s/p TAVR, presented with left hip pain after mechanical fall found to have left hip fracture acute left hip fracture due to mechanical fall patient moderate risk for moderate risk surgery, benefits outweigh risks plan for surgery today, 04/14/23 FREDRICK cpap obesity wegiht loss paroxysmal afib amio, holding xarelto for surgery full code reason for continued hospitalization: surgery Time Spent With Patient Time: Total time managing care of this patient today ____ minutes. Quality Stroke Does the patient have a stroke diagnosis?: No VTE Prior VTE?: No VTE Risk Level:: Medical - moderate - high VTE Device Contraindication: Treatment Not Indicated VTE Drug Contraindication: N/A - Med Ordered
--- NOTE | 2023-04-14 10:31 | P.CONCA_ITS ---
History of Present Illness History of Present Illness Date of Service: 04/14/23 Requesting physician: Holland Bingham Chief complaint: Hip fracture, preop assessment. Narrative: 77-year-old with severe s/p TAVR who had a mechincal fall and has femur fracture. We have been asked to assess preop risk. He is denying CP and SOB. He had a aortic valve replacement in June 2022. He has been doing well since then since the mechanical fall. No other concerns currently. He has been on anticoagulation but saying that since his fall he has not taken Xarelto for the last couple days. [facility] Social History Social History Household Members: Spouse Housing: House Do you presently have visiting nurse or other home services: No Alcohol intake: former Patient Tobacco Use Status: Former Tobacco user service: No Meds Allergies Allergy/AdvReac Type Severity Reaction Status Date / Time No Known Allergies Allergy Unverified 04/11/20 18:33 Active Medications: Current Medications Amiodarone HCl (Amiodarone Hcl 200 Mg Tablet) 100 mg PO DAILY [facility] Last Admin: 04/14/23 09:33 Dose: 100 mg Atorvastatin Calcium (Atorvastatin Calcium 10 Mg Tablet) 10 mg PO BEDTIME [facility] Last Admin: 04/13/23 21:08 Dose: 10 mg Ferrous Sulfate (Ferrous Sulfate 324 Mg Tablet.Dr) 324 mg PO DAILY [facility] Last Admin: 04/14/23 09:33 Dose: 324 mg Sodium Chloride (Ns) 100 mls @ 100 mls/hr IV ONCE ONE Stop: 04/14/23 11:28 Sodium Chloride (Ns) 100 mls @ 100 mls/hr IV ONCE ONE Stop: 04/14/23 11:28 Metoprolol Tartrate (Metoprolol Tartrate 12.5 Mg Halftab) 37.5 mg PO BID [facility]; Protocol Last Admin: 04/14/23 09:34 Dose: 37.5 mg Morphine Sulfate (Morphine Sulfate 2 Mg/Ml Cartridge) 2 mg IVPUSH Q4H PRN; Protocol PRN Reason: moderate pain Last Admin: 04/14/23 09:34 Dose: 2 mg Sodium Chloride (0.9 % Sodium Chloride Flush 3 Ml Syringe) 3 ml IVFLUSH QSHIFT [facility] Last Admin: 04/14/23 09:33 Dose: 3 ml Home Medications Medication Instructions Recorded Confirmed Last Taken Type amiodarone 200 mg tablet 100 mg PO DAILY 04/12/23 04/12/23 04/11/23 History ferrous sulfate 324 mg (65 mg 324 mg PO DAILY 04/12/23 04/12/23 Unknown History iron) tablet,delayed release furosemide 40 mg tablet 40 mg PO BID 04/12/23 04/12/23 04/11/23 History metoprolol tartrate 37.5 mg tablet 37.5 mg PO BID 04/12/23 04/12/23 04/11/23 History rivaroxaban 20 mg tablet (Xarelto) 20 mg PO DAILY@1700 04/12/23 04/12/23 04/11/23 History simvastatin 20 mg tablet 20 mg PO BEDTIME 04/12/23 04/12/23 04/11/23 History Physical Exam 2 Vital Signs: Vital Signs: Last Vital Signs Temp 98 F 04/14/23 06:52 Pulse 58 04/14/23 06:52 Resp 17 04/14/23 06:52 BP 108/58 L 04/14/23 06:52 Pulse Ox 98 04/14/23 06:52 O2 Del Method Room Air 04/14/23 06:52 O2 Flow Rate 97 04/12/23 09:34 BMI result Body Mass Index 35.0 GENERAL APPEARANCE: in no acute distress, pleasant. NECK: no carotid bruit, no jugular venous distention. SKIN: no suspicious lesions, warm and dry. HEART: Systolic murmur, regular rate and rhythm. LUNGS: clear to auscultation bilaterally. ABDOMEN: soft, nontender. EXTREMITIES: no edema. PERIPHERAL PULSES: equal. NEUROLOGIC: No gross deficits, AAO X 3 Objective Labs and Meds 04/14/23 06:15 04/14/23 06:15 Lab results: Laboratory Results - last 24 hr 04/14/23 06:15 WBC 11.6 H RBC 2.74 L Hgb 7.6 L Hct 25.1 L MCV 91.6 MCH 27.7 MCHC 30.3 L RDW 16.7 H Plt Count 139 L MPV 10.5 Absolute Nucleated RBC 0.000 Nucleated RBC % (auto) 0.0 Sodium 140 Potassium 3.7 Chloride 107 Carbon Dioxide 27 Anion Gap 10 L BUN 16 Creatinine 0.99 Estim Creat Clear Calc 91.1 Estimated GFR > 60 Fasting Glucose 106 H Calcium 8.7 Assessment and Plan (1) Intertrochanteric fracture of left femur: Qualifiers: Encounter type: initial encounter Fracture alignment: displaced F racture type: closed Qualified Code(s): S72.142A - Displaced intertrochanteric fracture of left femur, initial encounter for closed fracture Status: Acute (2) Preop cardiovascular exam: Status: Acute Plan 77-year-old gentleman with background history of severe aortic valve stenosis status post transcatheter aortic valve replacement this summer 2019 to presenting with mechanical fall and femur fracture. He is intermediate risk for perioperative cardiovascular complications. Hold Xarelto as you are currently. Continue metoprolol tartrate. Clinically not in heart failure. Please call if any questions arise. Thank you for allowing me to participate in the care of your patient. Please feel free to contact me if you have any questions. Time Spent With Patient Time: Total time managing care of this patient today ____ minutes. Procedures Date of Service Date of Service: 04/14/23
--- NOTE | 2023-04-14 12:11 | P.CONAN_ITS ---
HPI - Anesthesia Eval Consult details Narrative: 77 M for left hip gamma xerolto on hold s/p TAVR Case discussed with the surgeon and the rail detector car operator . Plan is to give a unit of PRBC intra-op . PMFSH Active Problems Active Problems: All Active Problems (Updated 04/14/23 @ 11:08 by Bernarda Vo RN) Preop cardiovascular exam (Acute) Intertrochanteric fracture of left femur (Acute) Past Medical History Medical History (Updated 04/14/23 @ 11:08 by Bernarda Vo RN) Sleep apnea Hip fracture, left History of transcatheter aortic valve replacement (TAVR) Aortic stenosis Diabetes Atrial fibrillation Family History Family history of problems with anesthesia: No Surgical History Surgical History (Updated 04/14/23 @ 11:05 by Bernarda Vo RN) History of appendectomy History of arthroscopy of both knees History of Problems with Anesthesia: No Social History Social History Household Members: Spouse Housing: House Do you presently have visiting nurse or other home services: No Alcohol intake: former Patient Tobacco Use Status: Former Tobacco user service: No Meds Allergies Allergy/AdvReac Type Severity Reaction Status Date / Time No Known Allergies Allergy Verified 04/14/23 11:06 Active Medications: Current Medications Amiodarone HCl (Amiodarone Hcl 200 Mg Tablet) 100 mg PO DAILY [facility] Last Admin: 04/14/23 09:33 Dose: 100 mg Atorvastatin Calcium (Atorvastatin Calcium 10 Mg Tablet) 10 mg PO BEDTIME [facility] Last Admin: 04/13/23 21:08 Dose: 10 mg Ferrous Sulfate (Ferrous Sulfate 324 Mg Tablet.) 324 mg PO DAILY [facility] Last Admin: 04/14/23 09:33 Dose: 324 mg Metoprolol Tartrate (Metoprolol Tartrate 12.5 Mg Halftab) 37.5 mg PO BID [facility]; Protocol Last Admin: 04/14/23 09:34 Dose: 37.5 mg Morphine Sulfate (Morphine Sulfate 2 Mg/Ml Cartridge) 2 mg IVPUSH Q4H PRN; Protocol PRN Reason: moderate pain Last Admin: 04/14/23 09:34 Dose: 2 mg Sodium Chloride (0.9 % Sodium Chloride Flush 3 Ml Syringe) 3 ml IVFLUSH QSHIFT [facility] Last Admin: 04/14/23 09:33 Dose: 3 ml Home Medications Medication Instructions Recorded Confirmed Last Taken Type amiodarone 200 mg tablet 100 mg PO DAILY 04/12/23 04/12/23 04/11/23 History ferrous sulfate 324 mg (65 mg 324 mg PO DAILY 04/12/23 04/12/23 Unknown History iron) tablet,delayed release furosemide 40 mg tablet 40 mg PO BID 04/12/23 04/12/23 04/11/23 History metoprolol tartrate 37.5 mg tablet 37.5 mg PO BID 04/12/23 04/12/23 04/11/23 History rivaroxaban 20 mg tablet (Xarelto) 20 mg PO DAILY@1700 04/12/23 04/12/23 04/11/23 History simvastatin 20 mg tablet 20 mg PO BEDTIME 04/12/23 04/12/23 04/11/23 History Exam Exam Date and Time: April 14, 2023 1211 Height,Weight and Vital Signs: Height 6 ft 3 in Weight 127.174 kg Last Vital Signs Temp 98.0 F 04/14/23 11:10 Pulse 56 04/14/23 11:10 Resp 16 04/14/23 11:10 BP 125/47 L 04/14/23 11:10 Pulse Ox 98 04/14/23 11:10 O2 Del Method Room Air 04/14/23 11:10 O2 Flow Rate 97 04/12/23 09:34 Pertinent Lab Results Pertinent Lab Results: Laboratory Tests 04/12/23 04/12/23 04/13/23 05:45 05:49 05:29 WBC 10.5 10.2 RBC 3.54 L 2.85 L Hgb 9.7 L 7.8 L Hct 32.7 L 26.2 L MCV 92.4 91.9 MCH 27.4 27.4 MCHC 29.7 L 29.8 L RDW 16.6 H 16.7 H Plt Count 169 155 L MPV 9.7 11.0 Immature Gran % (Auto) 0.4 Neut % (Auto) 83.9 H Lymph % (Auto) 7.6 L [place] % (Auto) 6.8 Eos % (Auto) 1.0 Baso % (Auto) 0.3 Lymph # (Auto) 0.8 L [place] # (Auto) 0.7 Eos # (Auto) 0.1 Baso # (Auto) 0.0 Abs Immat Gran (auto) 0.04 H Absolute Neuts (auto) 8.8 H Absolute Nucleated RBC 0.000 0.000 Nucleated RBC % (auto) 0.0 0.0 PT 20.5 H INR 1.7 H APTT 32.8 Sodium 144 143 Potassium 3.7 3.3 Chloride 111 H 109 H Carbon Dioxide 25 25 Anion Gap 12 12 BUN 22 H 17 H Creatinine 1.44 H 0.99 Estim Creat Clear Calc 62.6 91.1 Estimated GFR 48 > 60 Random Glucose 137 H Fasting Glucose 128 H Calcium 8.8 8.6 Total Bilirubin 0.5 AST 18 ALT 9 Alkaline Phosphatase 71 Total Protein 6.2 L Albumin 3.6 Lipase 40 COVID-19 (DOC) Negative COVID-19 [employer] Com See Note Blood Type A Positive Antibody Screen NEGATIVE Crossmatch See Detail 04/14/23 06:15 WBC 11.6 H RBC 2.74 L Hgb 7.6 L Hct 25.1 L MCV 91.6 MCH 27.7 MCHC 30.3 L RDW 16.7 H Plt Count 139 L MPV 10.5 Immature Gran % (Auto) Neut % (Auto) Lymph % (Auto) [place] % (Auto) Eos % (Auto) Baso % (Auto) Lymph # (Auto) [place] # (Auto) Eos # (Auto) Baso # (Auto) Abs Immat Gran (auto) Absolute Neuts (auto) Absolute Nucleated RBC 0.000 Nucleated RBC % (auto) 0.0 PT INR APTT Sodium 140 Potassium 3.7 Chloride 107 Carbon Dioxide 27 Anion Gap 10 L BUN 16 Creatinine 0.99 Estim Creat Clear Calc 91.1 Estimated GFR > 60 Random Glucose Fasting Glucose 106 H Calcium 8.7 Total Bilirubin AST ALT Alkaline Phosphatase Total Protein Albumin Lipase COVID-19 (DOC) COVID-19 Clin Com Blood Type Antibody Screen Crossmatch Narrative Narrative: Sinus bradycardia Left axis deviation Right bundle branch block Inferior infarct , age undetermined Abnormal ECG When compared with ECG of 15-JAN-2013 03:21, Vent. rate has decreased BY 37 BPM QRS duration has increased Airway Mallampati Class: IV Loose/Missing/Broken Teeth: Yes (poor dentition ) Assessment and Plan Assessment Anesthesia Assessment: Anesthesia Plan Discussed and Chart Reviewed Final Anesthetic Review Family History of Problems with Anesthesia: No History of Problems with Anesthesia: No NPO: Yes ASA Class: IV and Emergency Final Preanesthetic Review: Meds/Allgs Chart Reviewed, Consent Obtained/Reviewed and Anes Risks/Benef Reviewed Patient Risk: High Procedure Risk: Intermediate Anesthetic Plan Anesthetic Plan: GA and Agree w/ Assess. and Plan Disposition: Standard PACU and Inp. Admit - IMC
--- NOTE | 2023-04-14 15:48 | PM.OP ---
Brief Operative Note Date of Service: 04/14/23 Pre-op diagnosis: Left hip fracture Post-op diagnosis: same Procedure: Left hip IMN Implants: [place] [id number] 125 deg imn with 110 mm hip screw and 52.5 distal interlocking screw Surgeon: Kapil Law MD Anesthesia: GETA, regional and local Was an Food And Beverage Cashier used for this Procedure?: No Estimated blood loss (mL): 200 IV fluids (mL): 800 Pathology: none sent Condition: stable Disposition: PACU
[2023-04-14] MEDS: Lactated Ringers 1,000 ML 100 ML IVCONT (16:35)
[2023-04-14 18:31] LABS: Hematocrit 26.2 % (42.0-52.0)
[2023-04-14] MEDS: ceFAZolin Sodium/Dextrose,Iso 2 GM/50 ML PIGGYBACK IV (18:32)
[2023-04-14] MEDS: Atorvastatin Calcium 10 MG TABLET PO (20:24)
[2023-04-15] VITALS (12 sets, daily range): BP systolic 90–130; BP diastolic 48–62; PULSE 63–86; RESP 18–20; TEMP 36.1–37.7; O2SAT 92–98
[2023-04-15] MEDS: Lactated Ringers 1,000 ML 100 ML IVCONT (01:31)
[2023-04-15 06:30] LABS: MANUAL DIFF FLAG NO
[2023-04-15 06:37] LABS: Basophils Percent Auto 0.2 % (0-2); Eosinophils Absolute Auto 0.1 X10*3/uL (0.0-0.4); Eosinophils Percent Auto 1.1 % (0-4); Hematocrit 24.8 % (42.0-52.0); Hemoglobin 7.4 g/dl (14.0-18.0); Imm Gran Abs Auto 0.06 X10*3/uL (0.00-0.03); Imm Gran Pct Auto 0.5 % (0.0-0.4); Lymphocytes Absolute Auto 0.7 X10*3/uL (1.2-4.9); Lymphocytes Percent Auto 5.6 % (20-40); Mean Corpuscular HGB Conc 29.8 g/dl (31.0-36.0); Mean Corpuscular Hemoglobin 27.4 pg (27.0-33.0); Mean Corpuscular Volume 91.9 fL (80.0-98.0); Monocytes Absolute Auto 1.2 X10*3/uL (0.1-1.2); Monocytes Percent Auto 9.7 % (2-11); Neutrophils Absolute Auto 10.3 x10*3/uL (2.0-8.3); Neutrophils Percent Auto 82.9 % (45-73); Platelet Count 151 X10*3/uL (160-400); Red Cell Distribution Width 16.2 % (11.0-16.0); White Blood Count 12.4 X10*3/uL (4.8-10.8)
[2023-04-15 06:56] LABS: Anion Gap 10 (12-20); Blood Urea Nitrogen 17 mg/dL (9-16); Calcium 8.4 mg/dL (8.4-10.2); Carbon Dioxide 27 mmol/L (22-29); Chloride 104 mmol/L (96-108); Creatinine Clr Calc Pharmacy 84.3; Estimated Glomerular Filt Rate > 60; Glucose Fasting 133 mg/dL (60-99); Sodium 137 mmol/L (135-145)
[2023-04-15] MEDS: Amiodarone HCL 200 MG TABLET 100 MG PO (07:57)
[2023-04-15] MEDS: Metoprolol Tartrate 12.5 MG HALFTAB 37.5 MG PO ×2 (07:58→20:34)
[2023-04-15] MEDS: 0.9 % Sodium Chloride Flush 3 ML SYRINGE IVFLUSH ×3 (07:59→20:35)
[2023-04-15] MEDS: Ferrous Sulfate 324 MG TABLET.DR PO (07:59)
[2023-04-15] MEDS: Morphine Sulfate 2 MG/ML CARTRIDGE IVPUSH ×3 (08:01→23:27)
--- NOTE | 2023-04-15 09:38 | PM.PNORT ---
Subjective Subjective Date of Service: 04/15/23 Interval history: POD1 s/p left hip IM Nail Patient is resting in bed comfortably No overnight events Pain is managed No additional complaints Physical Exam Vital Signs: Vital Signs: Last Vital Signs Temp 98.8 F 04/15/23 07:52 Pulse 74 04/15/23 08:43 Resp 18 04/15/23 08:01 BP 125/58 L 04/15/23 08:43 Pulse Ox 95 04/15/23 07:52 O2 Del Method CPAP 04/15/23 07:52 O2 Flow Rate 4 04/14/23 19:09 BMI result Body Mass Index 35.0 Const: General: cooperative, healthy appearing and no acute distress Resp: Effort & Inspection: normal respiratory effort and able to speak in complete sentences Cardio: Rate: regular rate Peripheral pulses: Peripheral pulses 2+ throughout GI: Palpation (GI): Soft to palpation Skin: Lesions: no lesions Rashes: no rashes Extrem: Other: left hip dressing is c/d/i. Able to dorsi/plantar flex. Calf is supple and nontender. Sensation intact. Pedal pulse intact. Procedures Date of Service Date of Service: 04/15/23 Progress Note: A&P Assessment and plan (1) Intertrochanteric fracture of left femur: Status: Acute Plan Continue pain mgmnt Begin Lovenox for dvt ppx begin PT for left hip IM Nail - WBAT Dispo planning-Pending PT eval, pain mgmnt Time Spent With Patient Time: Total time managing care of this patient today ____ minutes. Quality Stroke Does the patient have a stroke diagnosis?: No VTE Prior VTE?: No VTE Risk Level:: Medical - moderate - high VTE Device Contraindication: Treatment Not Indicated VTE Drug Contraindication: N/A - Med Ordered
[2023-04-15] MEDS: Furosemide 40 MG TABLET PO (11:10)
--- NOTE | 2023-04-15 12:33 | HO.PM.IMPN ---
Subjective Subjective Date of Service: 04/15/23 Interval History: Feels better pain under control Hb dropped below 8 No bleeding reported Review of Systems Review of Systems: Yes all other systems are reviewed and are negative Physical Exam Vital Signs: Vital Signs: Last Vital Signs Temp 98.5 F 04/15/23 11:00 Pulse 68 04/15/23 11:00 Resp 18 04/15/23 11:00 BP 111/55 L 04/15/23 11:00 Pulse Ox 96 04/15/23 11:00 O2 Del Method Room Air 04/15/23 11:00 O2 Flow Rate 4 04/14/23 19:09 BMI result Body Mass Index 35.0 Const: Other: Constitutional : Awake, interactive, not in distress Neck : Normal inspection, Supple Cardiovascular : RRR, no JVP, no lower extremity edema Respiratory : good bilateral air entry, no crackles, wheezes or rhonchi Gastrointestinal: soft, lax, Normal bowel sounds, Non tender Skin : Warm, Dry Skeletal: Left hip dressing clean, no bleeding or drainage Neurological : Alert & oriented x3, No focal deficit Objective Data Active Medications Amiodarone HCl (Amiodarone Hcl 200 Mg Tablet) 100 mg PO DAILY [facility] Last Admin: 04/15/23 07:57 Dose: 100 mg Documented By: ALEX Atorvastatin Calcium (Atorvastatin Calcium 10 Mg Tablet) 10 mg PO BEDTIME [facility] Last Admin: 04/14/23 20:24 Dose: 10 mg Documented By: CINTHIA Enoxaparin Sodium (Enoxaparin Sodium 40 Mg/0.4 Ml Syringe) 40 mg SUBCUT Q24H [facility] Fentanyl (Fentanyl Citrate/Pf 100 Mcg/2 Ml Vial) 25 mcg IVPUSH Q5M PRN; Protocol PRN Reason: Pain, Moderate(Pain Scale 4-6) Ferrous Sulfate (Ferrous Sulfate 324 Mg Tablet.) 324 mg PO DAILY [facility] Last Admin: 04/15/23 07:59 Dose: 324 mg Documented By: ALEX Furosemide (Furosemide 40 Mg Tablet) 40 mg PO DAILY [facility]; Protocol Last Admin: 04/15/23 11:10 Dose: 40 mg Documented By: ALEX Metoprolol Tartrate (Metoprolol Tartrate 12.5 Mg Halftab) 37.5 mg PO BID [facility]; Protocol Last Admin: 04/15/23 07:58 Dose: 37.5 mg Documented By: ALEX Morphine Sulfate (Morphine Sulfate 2 Mg/Ml Cartridge) 2 mg IVPUSH Q4H PRN; Protocol PRN Reason: moderate pain Last Admin: 04/15/23 08:01 Dose: 2 mg Documented By: ALEX Sodium Chloride (0.9 % Sodium Chloride Flush 3 Ml Syringe) 3 ml IVFLUSH QSHIFT [facility] Last Admin: 04/15/23 07:59 Dose: 3 ml Documented By: ALEX Labs 04/15/23 06:13 04/15/23 06:13 Labs: Laboratory Results - last 24 hr 04/12/23 04/15/23 04/15/23 05:49 06:13 06:13 MCV 91.9 Cancelled MCH 27.4 MCHC RDW Plt Count MPV Immature Gran % (Auto) Neut % (Auto) Lymph % (Auto) [place] % (Auto) Eos % (Auto) Baso % (Auto) Lymph # (Auto) [place] # (Auto) Eos # (Auto) Baso # (Auto) Abs Immat Gran (auto) Absolute Neuts (auto) Absolute Nucleated RBC Nucleated RBC % (auto) Anion Gap Estim Creat Clear Calc Estimated GFR Fasting Glucose Calcium Blood Type A Positive Antibody Screen NEGATIVE Crossmatch See Detail 04/15/23 04/15/23 04/15/23 06:13 06:13 06:13 MCV MCH Cancelled MCHC 29.8 L Cancelled RDW 16.2 H Cancelled Plt Count 151 L MPV Immature Gran % (Auto) Neut % (Auto) Lymph % (Auto) [place] % (Auto) Eos % (Auto) Baso % (Auto) Lymph # (Auto) [place] # (Auto) Eos # (Auto) Baso # (Auto) Abs Immat Gran (auto) Absolute Neuts (auto) Absolute Nucleated RBC Nucleated RBC % (auto) Anion Gap Estim Creat Clear Calc Estimated GFR Fasting Glucose Calcium Blood Type Antibody Screen Crossmatch 04/15/23 04/15/23 04/15/23 06:13 06:13 06:13 MCV MCH MCHC RDW Plt Count Cancelled MPV 11.0 Cancelled Immature Gran % (Auto) 0.5 H Neut % (Auto) 82.9 H Lymph % (Auto) 5.6 L [place] % (Auto) 9.7 Eos % (Auto) 1.1 Baso % (Auto) 0.2 Lymph # (Auto) 0.7 L [place] # (Auto) 1.2 Eos # (Auto) 0.1 Baso # (Auto) 0.0 Abs Immat Gran (auto) 0.06 H Absolute Neuts (auto) 10.3 H Absolute Nucleated RBC 0.000 Cancelled Nucleated RBC % (auto) 0.0 Anion Gap Estim Creat Clear Calc Estimated GFR Fasting Glucose Calcium Blood Type Antibody Screen Crossmatch 04/15/23 04/15/23 06:13 11:43 MCV MCH MCHC RDW Plt Count MPV Immature Gran % (Auto) Neut % (Auto) Lymph % (Auto) [place] % (Auto) Eos % (Auto) Baso % (Auto) Lymph # (Auto) [place] # (Auto) Eos # (Auto) Baso # (Auto) Abs Immat Gran (auto) Absolute Neuts (auto) Absolute Nucleated RBC Nucleated RBC % (auto) Cancelled Anion Gap 10 L Estim Creat Clear Calc 84.3 Estimated GFR > 60 Fasting Glucose 133 H Calcium 8.4 Blood Type A Positive Antibody Screen NEGATIVE Crossmatch See Detail Assessment and Plan (1) Intertrochanteric fracture of left femur: Status: Acute (2) Acute on chronic blood loss anemia: Status: Acute (3) Acute kidney injury: Status: Acute Plan 77M PMH obesity, fredrick, paroxysmal afib, DM (now off meds), HTN, aortic stenosis s/p TAVR, presented with left hip pain after mechanical fall found to have left hip fracture acute left hip fracture due to mechanical fall POD 1 Pain meds Ortho team following, start Lovenox now stop IVF PT Acute on chronic blood loss anemia Hb dropped below 8, given his cardiac hx will try to keep it above 8 to give 1 unit PRBCs follow H&H MOR Improved with IVF FREDRICK cpap obesity wegiht loss paroxysmal afib amio, holding xarelto for surgery full code reason for continued hospitalization: pending safe discharge plan Time Spent With Patient Time: Total time managing care of this patient today ____ minutes. Quality Stroke Does the patient have a stroke diagnosis?: No VTE Prior VTE?: No VTE Risk Level:: Medical - moderate - high VTE Device Contraindication: Treatment Not Indicated VTE Drug Contraindication: N/A - Med Ordered
[2023-04-15] MEDS: Enoxaparin Sodium 40 MG/0.4 ML SYRINGE SUBCUT (14:27)
--- NOTE | 2023-04-15 14:46 | HO.POSTANES ---
Post Anesthesia Evaluation Post Anesthesia Evaluation Date of Service: 04/15/23 Vital Signs: Vital Signs Temp Pulse Resp BP Pulse Ox O2 Del Method 04/15/23 14:03 94 CPAP 04/15/23 11:00 98.5 F 68 18 111/55 L 96 Room Air 04/15/23 08:43 74 125/58 L 04/15/23 08:01 18 04/15/23 07:56 74 125/58 L 04/15/23 07:52 98.8 F 74 18 90/48 L 95 CPAP 04/15/23 03:00 98.1 F 63 20 121/58 L 92 Room Air Anesthesia: General Mental Status: Awake Pain Control: Satisfactory Nausea/Vomiting: None Hydration: Adequate Anesthesia-Related Issues: No Anes. Related Issues
--- NOTE | 2023-04-15 15:05 | MHC.CM.PN ---
PT january recommends STR. Documentation was sent to facilities. [facility] has offered a bed for tomorrow. The patient has accepted the bed. [facility] via BLS.
[2023-04-15] MEDS: Atorvastatin Calcium 10 MG TABLET PO (20:34)
[2023-04-16] VITALS (7 sets, daily range): BP systolic 108–141; BP diastolic 54–63; PULSE 59–70; RESP 16–20; TEMP 36.1–37.4; O2SAT 93–95
[2023-04-16 06:25] LABS: MANUAL DIFF FLAG NO
[2023-04-16 06:42] LABS: Basophils Percent Auto 0.3 % (0-2); Eosinophils Absolute Auto 0.3 X10*3/uL (0.0-0.4); Eosinophils Percent Auto 2.8 % (0-4); Hematocrit 23.3 % (42.0-52.0); Hemoglobin 7.2 g/dl (14.0-18.0); Imm Gran Abs Auto 0.06 X10*3/uL (0.00-0.03); Imm Gran Pct Auto 0.6 % (0.0-0.4); Lymphocytes Absolute Auto 0.5 X10*3/uL (1.2-4.9); Lymphocytes Percent Auto 5.7 % (20-40); Mean Corpuscular HGB Conc 30.9 g/dl (31.0-36.0); Mean Corpuscular Hemoglobin 28.2 pg (27.0-33.0); Mean Corpuscular Volume 91.4 fL (80.0-98.0); Mean Platelet Volume 10.7 fL (9.4-12.4); Monocytes Percent Auto 10.1 % (2-11); Neutrophils Absolute Auto 7.6 x10*3/uL (2.0-8.3); Neutrophils Percent Auto 80.5 % (45-73); Platelet Count 157 X10*3/uL (160-400); Red Blood Count 2.55 X10*6/uL (4.60-5.80); Red Cell Distribution Width 15.8 % (11.0-16.0); White Blood Count 9.4 X10*3/uL (4.8-10.8)
[2023-04-16 06:46] LABS: Anion Gap 10 (12-20); Blood Urea Nitrogen 19 mg/dL (9-16); Calcium 8.1 mg/dL (8.4-10.2); Carbon Dioxide 26 mmol/L (22-29); Chloride 103 mmol/L (96-108); Creatinine Clr Calc Pharmacy 86.8; Estimated Glomerular Filt Rate > 60; Glucose Random 108 mg/dL (60-115); Potassium 3.3 mmol/L (3.3-5.1); Sodium 136 mmol/L (135-145)
[2023-04-16] MEDS: Metoprolol Tartrate 12.5 MG HALFTAB 37.5 MG PO (08:15)
[2023-04-16] MEDS: Amiodarone HCL 200 MG TABLET 100 MG PO (08:16)
[2023-04-16] MEDS: Furosemide 40 MG TABLET PO (08:16)
[2023-04-16] MEDS: Ferrous Sulfate 324 MG TABLET.DR PO (08:21)
[2023-04-16] MEDS: 0.9 % Sodium Chloride Flush 3 ML SYRINGE IVFLUSH (08:21)
[2023-04-16] MEDS: Furosemide 20 MG/2 ML VIAL IVPUSH (10:23)
--- NOTE | 2023-04-16 12:07 | MHC.CM.PN ---
Addendum entered by Ashely Blackwell 04/16/23 12:40: Transport booked with [facility] 4pm pick up attendant. Original Note: Patient will discharge to [facility] for STR today. He will transport via S.
--- NOTE | 2023-04-16 12:27 | P.DS_ITS ---
DS: Providers Provider Date of Service: 04/16/23 Date of admission: 04/12/23 10:21 Primary care physician: Unknown Physician Consults: 04/12/23 10:21 Consult to Orthopedics Routine Consulting Provider: [facility] Orthopedic Surgeons Reason for consultation: left hip fracture Has provider been notified: Yes DS: Diagnosis Discharge Diagnosis (1) Intertrochanteric fracture of left femur: Status: Acute (2) Acute on chronic blood loss anemia: Status: Acute (3) Acute kidney injury: Status: Acute (4) Fall: Status: Acute DS: Summary Hospital Course Hospital Course: Admission note HPI 77M PMH obesity, paroxysmal afib, fredrick, DM (now off meds), HTN, aortic stenosis s/p TAVR, presented with left hip pain after mechanical fall. Patient slipped on water at 3am day of admission. fell and had pain on left hip. found to have left hip fracture. denies LOC, other work up negative. patient on xarleto for afib, last dose 04/11/23. Hospital course # acute left hip fracture due to mechanical fall that went for ORIF with dr Law with good response as he was able to tolerate physical therapy who recommended short term rehab. pain controlled with PRN Tylenol and Oxycodone. To follow with Orthopedic team in 2 weeks for wound check. # Acute on chronic blood loss anemia as he dropped his Hb level below 8 requiring total of 2 units transfusion with good response as repeated Hb >8. No source of bleeding identified, likely from surgical loss and dilution. To repeat CBC as outpatient. # MOR Presented with creatinine of 1.44 that has mproved with IVF back to normal baseline. # FREDRICK Continue cpap To repeat blood test as outpatient Oxycodone for pain Increase activity as tolerated with PT follow with Orthopedics in 2 weeks for wound check Time Spent with Patient Time attestation: Total time managing care of this patient today ____ minutes. Discharge coordination time: Greater than 30 minutes Quality: Safe Use of Opioids Does Pt have an Active Cancer Diagnosis on the Problem List?: No Quality: Stroke Does the patient have a stroke diagnosis?: No Physical Exam Vital Signs: Vital Signs: Last Vital Signs Temp 98.1 F 04/16/23 10:57 Pulse 59 04/16/23 10:57 Resp 16 04/16/23 10:57 BP 123/59 L 04/16/23 10:57 Pulse Ox 93 04/16/23 07:00 O2 Del Method CPAP 04/16/23 07:00 O2 Flow Rate 4 04/15/23 19:00 BMI result Body Mass Index 35.0 Const: Other: Constitutional : Awake, interactive, not in distress Neck : Normal inspection, Supple Cardiovascular : RRR, no JVP, no lower extremity edema Respiratory : good bilateral air entry, no crackles, wheezes or rhonchi Gastrointestinal: soft, lax, Normal bowel sounds, Non tender Skin : Warm, Dry Skeletal: Left hip dressing clean, no bleeding or drainage Neurological : Alert & oriented x3, No focal deficit DS: Data Data Completed and Pending Labs on day of discharge: Laboratory Results - last 24 hr 04/15/23 04/16/23 04/16/23 11:43 05:50 05:50 WBC 9.4 Cancelled RBC 2.55 L Hgb Hct MCV MCH MCHC RDW Plt Count MPV Immature Gran % (Auto) Neut % (Auto) Lymph % (Auto) [place] % (Auto) Eos % (Auto) Baso % (Auto) Lymph # (Auto) [place] # (Auto) Eos # (Auto) Baso # (Auto) Abs Immat Gran (auto) Absolute Neuts (auto) Absolute Nucleated RBC Nucleated RBC % (auto) Sodium Potassium Chloride Carbon Dioxide Anion Gap BUN Creatinine Estim Creat Clear Calc Estimated GFR Random Glucose Calcium Blood Type A Positive Antibody Screen NEGATIVE Crossmatch See Detail 04/16/23 04/16/23 04/16/23 05:50 05:50 05:50 WBC RBC Cancelled Hgb 7.2 L Cancelled Hct 23.3 L Cancelled MCV 91.4 MCH MCHC RDW Plt Count MPV Immature Gran % (Auto) Neut % (Auto) Lymph % (Auto) [place] % (Auto) Eos % (Auto) Baso % (Auto) Lymph # (Auto) [place] # (Auto) Eos # (Auto) Baso # (Auto) Abs Immat Gran (auto) Absolute Neuts (auto) Absolute Nucleated RBC Nucleated RBC % (auto) Sodium Potassium Chloride Carbon Dioxide Anion Gap BUN Creatinine Estim Creat Clear Calc Estimated GFR Random Glucose Calcium Blood Type Antibody Screen Crossmatch 04/16/23 04/16/23 04/16/23 05:50 05:50 05:50 WBC RBC Hgb Hct MCV Cancelled MCH 28.2 Cancelled MCHC 30.9 L Cancelled RDW 15.8 Plt Count MPV Immature Gran % (Auto) Neut % (Auto) Lymph % (Auto) [place] % (Auto) Eos % (Auto) Baso % (Auto) Lymph # (Auto) [place] # (Auto) Eos # (Auto) Baso # (Auto) Abs Immat Gran (auto) Absolute Neuts (auto) Absolute Nucleated RBC Nucleated RBC % (auto) Sodium Potassium Chloride Carbon Dioxide Anion Gap BUN Creatinine Estim Creat Clear Calc Estimated GFR Random Glucose Calcium Blood Type Antibody Screen Crossmatch 04/16/23 04/16/23 04/16/23 05:50 05:50 05:50 WBC RBC Hgb Hct MCV MCH MCHC RDW Cancelled Plt Count 157 L Cancelled MPV 10.7 Cancelled Immature Gran % (Auto) 0.6 H Neut % (Auto) 80.5 H Lymph % (Auto) 5.7 L [place] % (Auto) 10.1 Eos % (Auto) 2.8 Baso % (Auto) 0.3 Lymph # (Auto) 0.5 L [place] # (Auto) 1.0 Eos # (Auto) 0.3 Baso # (Auto) 0.0 Abs Immat Gran (auto) 0.06 H Absolute Neuts (auto) 7.6 Absolute Nucleated RBC 0.000 Nucleated RBC % (auto) Sodium Potassium Chloride Carbon Dioxide Anion Gap BUN Creatinine Estim Creat Clear Calc Estimated GFR Random Glucose Calcium Blood Type Antibody Screen Crossmatch 04/16/23 04/16/23 05:50 05:50 WBC RBC Hgb Hct MCV MCH MCHC RDW Plt Count MPV Immature Gran % (Auto) Neut % (Auto) Lymph % (Auto) [place] % (Auto) Eos % (Auto) Baso % (Auto) Lymph # (Auto) [place] # (Auto) Eos # (Auto) Baso # (Auto) Abs Immat Gran (auto) Absolute Neuts (auto) Absolute Nucleated RBC Cancelled Nucleated RBC % (auto) 0.0 Cancelled Sodium 136 Potassium 3.3 Chloride 103 Carbon Dioxide 26 Anion Gap 10 L BUN 19 H Creatinine 1.04 Estim Creat Clear Calc 86.8 Estimated GFR > 60 Random Glucose 108 Calcium 8.1 L Blood Type Antibody Screen Crossmatch Imaging XR Hip : Radiologist's impression: ITS Impressions Chest X-Ray 04/12/23 06:33 IMPRESSION: As above. Hip/Pelvis X-Ray 04/12/23 06:33 IMPRESSION: As above. Cervical Spine CT 04/12/23 06:43 IMPRESSION: No acute intracranial abnormality. Cervical disc degenerative change. No fracture. Head CT 04/12/23 06:44 IMPRESSION: No acute intracranial abnormality. Cervical disc degenerative change. No fracture. Discharge Plan Discharge Anticipated Discharge Date/Time: 04/16/23 12:23 Patient Disposition: er [facility] Discharge Diagnosis: Femur fracture Kidney injury Blood loss anemia Referrals: [facility] [Outside] - 1 Week Chadwick Rojas PA-C [Physician Ribbon Cleaner] - 04/26/23 2:00 pm Physician,Levy J [Primary Care Provider] - 1 Week Discharge Medications: New oxycodone 5 mg tablet 5 mg PO Q6H PRN (Reason: pain (scale score 7-10)) Qty: 30 0RF Rx Instructions: Partial Fill upon patient request. polyethylene glycol 3350 [Miralax] 17 gram/dose powder 17 g PO DAILY 30 Days Qty: 510 0RF Continued furosemide 40 mg tablet 40 mg PO BID amiodarone 200 mg tablet 100 mg PO DAILY simvastatin 20 mg tablet 20 mg PO BEDTIME ferrous sulfate 324 mg (65 mg iron) Tablet,Delayed Release (Dr/Ec) 324 mg PO DAILY Xarelto 20 mg tablet 20 mg PO DAILY@1700 metoprolol tartrate 37.5 mg tablet 37.5 mg PO BID Discharge Orders: Discharge Order (Routine); Ordered 04/16/23 Ordered By: Krishna Garduno Diet: Advance to usual diet Activity on Discharge: As tolerated Stand Alone Forms: Patient Portal Discharge page Other Ambulatory Orders: Complete Blood Count Auto Diff (Routine) Timeframe: 3 Days Facility: [facility] - Location: Laboratory Ordered By: Krishna Garduno Activity Restrictions/Additional Instructions: Gait training, strengthening, ADLs Continue Lovenox for dvt ppx x6 weeks Keep dressing clean, dry and intact-no showering or tub baths Follow up with Orthopedics in 2 weeks Care Plan Goals: Read below Health Concerns: Read below Plan of Treatment: Read below Assessment: To repeat blood test as outpatient Oxycodone for pain Increase activity as tolerated with PT follow with Orthopedics in 2 weeks for wound check Discharge Date/Time: 04/16/23 16:21
[2023-04-16] MEDS: Enoxaparin Sodium 40 MG/0.4 ML SYRINGE SUBCUT (14:10)
[2023-04-16 14:37] LABS: Hematocrit 29.3 % (42.0-52.0); Hemoglobin 9.2 g/dl (14.0-18.0); Mean Corpuscular HGB Conc 31.4 g/dl (31.0-36.0); Mean Corpuscular Hemoglobin 28.7 pg (27.0-33.0); Mean Corpuscular Volume 91.3 fL (80.0-98.0); NRBC Pct Auto 0.2 /100WBC (0.0-0.2); Platelet Count 177 X10*3/uL (160-400); Red Blood Count 3.21 X10*6/uL (4.60-5.80); Red Cell Distribution Width 15.4 % (11.0-16.0); White Blood Count 11.2 X10*3/uL (4.8-10.8)
[2023-04-16] MEDS: Morphine Sulfate 2 MG/ML CARTRIDGE IVPUSH (14:59)
[2023-04-16] MEDS: polyethylene glycoL 3350 17 GM POWD.PACK PO (15:50)
--- NOTE | 2023-04-19 11:19 | W.PM.OPN ---
Operative Note Operative Note Date of Service: 04/14/23 Narrative: Date of Service: 04/14/23 Pre-op diagnosis: Left hip fracture Post-op diagnosis: same Procedure: Left hip IMN Implants: [place] [id number] 125 deg imn with 110 mm hip screw and 52.5 distal interlocking screw Surgeon: Kapil Law MD Anesthesia: GETA, regional and local Was an Machine Shop Worker used for this Procedure?: No Estimated blood loss (mL): 200 IV fluids (mL): 800 Pathology: none sent Condition: stable Disposition: PACU Procedure in detail: Patient was brought to the operating room and prepped and draped in standard sterile fashion. Time-out was called to identify proper site procedure proper surgeon and IV antibiotics per weight were administered. She was positioned on the fracture table and a traction and slight internal rotation were performed and biplanar fluoroscopy confirmed initial fracture reduction. I then made a stab incision proximal to the greater trochanter in using a guidewire made a entry point just lateral to the tip of the greater trochanter and placed a guidewire into the femoral metadiaphysis. I then over-reamed with 15 mm Reamer placed my ball-tip guidewire down distally in the femur and measured my length. I selected a [id number] 125 deg imn nail and reamed up to a 13. I then placed the nail. I then turned my attention to the hip screw where I used a guidewire and a tip apex distance of less than 1.5 measured a 110mm hip screw. I then pre drilled and placed a hip screw using biplanar fluoroscopy. Once I was satisfied with the position of the hip screw I turned my attention to the distal aspect of the nail. Using perfect qagan tayagungin technique I placed 1 static 52.5mm distal interlocking screw in standard AO technique. I then removed all I then placed my set screw proximally and removed all extraneous instrumentation. Final biplanar radiographs were taken. I was satisfied with the position of the hardware and the fracture reduction. I think copiously irrigated closed with absorbable sutures eduardo and injected 30 mL of into the area of the incisions. Traction was let down patient was placed in sterile dressing awakened from anesthesia brought to recovery room stable condition there were no known complications.
== END 2023-04-16 16:21 | disposition skilled nursing facility (03) | DRG 308 ==
LOC: HO.ED 09:12 → HO.EDOVER 10:28 → HO.S3 16:33
PROVIDERS: Emergency Medicine Emergency Medical Services; Orthopaedic Surgery; Physician Assistant; Admitting Provider Internal Medicine; Emergency Provider Emergency Medicine; Visit Provider Student in an Organized Health Care Education/Training Program
PROC: 0QS736Z Reposition Left Upper Femur with Intramedullary Internal Fixation Device, Percutaneous Approach (ICD-10-PCS; principal; 2023-04-14 15:00)
DX: S72.142A Displaced intertrochanteric fracture of left femur, initial encounter for closed fracture (principal); N17.9 Acute kidney failure, unspecified; D62 Acute posthemorrhagic anemia; W01.0XXA Fall on same level from slipping, tripping and stumbling without subsequent striking against object, initial encounter; I48.0 Paroxysmal atrial fibrillation; G47.33 Obstructive sleep apnea (adult) (pediatric); E66.9 Obesity, unspecified; Z68.35 Body mass index [BMI] 35.0-35.9, adult; Z20.822 Contact with and (suspected) exposure to COVID-19; Z87.891 Personal history of nicotine dependence; Z95.2 Presence of prosthetic heart valve; Z79.01 Long term (current) use of anticoagulants; Z79.899 Other long term (current) drug therapy
CPT/HCPCS: 36415; 70450; 71045; 72125; 73502; 80048; 80053; 83690; 85014; 85018; 85025; 85027; 85610; 85730; 86850; 86900; 86901; 86923; 87635; 93005; 97162; 97166; 99285; C1713; C1769; C1776; J0690; J1650; J1940; J2270; J2795; J3010; P9016

== ENCOUNTER → 2023-04-12 10:21 | Outpatient (BNV) | payer OTHER, SELFPAY ==
[2022-12-29 07:43] VITALS: BP 102/50; BP 122/56; BP 134/66; BMI 34.3
== END ==
PROVIDERS: Admitting Provider Internal Medicine; Emergency Provider Emergency Medicine; Visit Provider Internal Medicine
DX: S72.142A Displaced intertrochanteric fracture of left femur, initial encounter for closed fracture (principal); D62 Acute posthemorrhagic anemia; N17.9 Acute kidney failure, unspecified; W19.XXXA Unspecified fall, initial encounter
CPT/HCPCS: 99223; 99232; 99233; 99239

== ENCOUNTER → 2023-04-12 10:21 | Outpatient (BNV) | payer OTHER, SELFPAY ==
[2022-12-29 07:43] VITALS: BP 102/50; BP 122/56; BP 134/66; BMI 34.3
== END ==
PROVIDERS: Admitting Provider Internal Medicine; Emergency Provider Emergency Medicine; Visit Provider Physician Assistant
DX: S72.142A Displaced intertrochanteric fracture of left femur, initial encounter for closed fracture (principal)
CPT/HCPCS: 27245; 99024; 99221; 99499

== ENCOUNTER → 2023-04-12 10:21 | Outpatient (BNV) | payer OTHER, SELFPAY ==
[2022-12-29 07:43] VITALS: BP 102/50; BP 122/56; BP 134/66; BMI 34.3
== END ==
PROVIDERS: Admitting Provider Internal Medicine; Emergency Provider Emergency Medicine; Visit Provider Internal Medicine Cardiovascular Disease
DX: S72.142A Displaced intertrochanteric fracture of left femur, initial encounter for closed fracture (principal); Z01.810 Encounter for preprocedural cardiovascular examination
CPT/HCPCS: 99222

== ENCOUNTER 2023-05-10 09:52 | Outpatient (AMB) | payer OTHER, SELFPAY ==
[2022-12-29 07:43] VITALS: BP 102/50; BP 122/56; BP 134/66; BMI 34.3
--- NOTE | 2023-05-10 10:16 | A.OFFVIS_ITS ---
Intake Intake Visit Reasons: P.O Left IM Nail hip w NE 04/14/23 Intake Note: Chaka a 77 year old male presents today for a post operative left hip IMN, DOS 04/14/23 NE. Patient reports he is doing well, he was discharged from rehab today. Currently he does not have pain, he feels improvement daily. Allergies No Known Allergies Allergy (Verified 05/10/23 10:21) HPI P.O Left IM Nail hip w NE 04/14/23 HPI Details 77-year-old male who returns to the [facility] today for post-op left hip IMN, 04/14/23. He states he has no pain and has been improving in his symptoms daily. He is doing well overall and has no concerns today. [facility] Medical History (Updated 04/24/23 @ 00:03 by Chetna Kamara) Sleep apnea Hip fracture, left History of transcatheter aortic valve replacement (TAVR) Aortic stenosis Diabetes Atrial fibrillation Surgical History History of appendectomy History of arthroscopy of both knees Social History Household Members: Spouse Housing: House Do you presently have visiting nurse or other home services: No Alcohol intake: former Patient Tobacco Use Status: Former Tobacco user service: No Review of Systems Const All systems reviewed & are unremarkable except as noted in HPI and below Physical Exam Extrem Other: Left hip: Incision well healed. No pain with ROM or flexion of hip. Calf supple, nontender. NVI. Results Reviewed Results Reviewed: X-rays of the left hip obtained in the office today show intact intramedullary nail with stable fracture alignment. Assessment & Plan Assessment & Plan (1) Intertrochanteric fracture of left femur: Code(s): S72.142A - Displaced intertrochanteric fracture of left femur, initial encounter for closed fracture Qualifiers: Encounter type: initial encounter Fracture alignment: displaced Fracture type: closed Qualified Code(s): S72.142A - Displaced intertrochanteric fracture of left femur, initial encounter for closed fracture Plan [place] removed, steri strips applied. He will continue to work with PT to continue working on Gait training, ROM and quad strength. No driving for another 4 weeks.He will f/u in 4 weeks, sooner if needed. Orders: Orders XR femur LT 2V Today M79.606 - Pain in leg, unspecified Patient Instructions: Scribed for Chadwick Rojas PA-C, by Giovanni Gentile medical records specialist, on 05/10/2023 at 10:00 AM RED. Chadwick Soni PA-C, have personally reviewed and agree with the information entered by the scribe. Coding Level of Care Code Global (49516) Diagnoses Closed displaced intertrochanteric fracture of left femur, initial encounter S72.142A Encounter type: initial encounter Fracture alignment: displaced Fracture type: closed
== END 2023-05-10 10:32 | disposition home or self-care (01) ==
PROVIDERS: Visit Provider Physician Assistant
DX: S72.142A Displaced intertrochanteric fracture of left femur, initial encounter for closed fracture (principal)
CPT/HCPCS: 99024

== ENCOUNTER 2023-05-10 17:14 | Outpatient (REF) | payer OTHER, SELFPAY ==
[2022-12-29 07:43] VITALS: BP 102/50; BP 122/56; BP 134/66; BMI 34.3
--- NOTE | ~2023-05-10 | XR_ITS ---
EXAMINATION: XR FEMUR, LEFT CLINICAL INFORMATION: Pain COMPARISON: Left hip 04/12/2023 TECHNIQUE: AP and lateral views of the left femur were obtained. FINDINGS: There is a intramedullary femoral cathy and left hip nail stabilizing comminuted intertrochanteric fracture in alignment. No dislocation seen. The soft tissues are normal. XR/XR femur LT 2V IMPRESSION: Stabilized comminuted intertrochanteric fracture following placement of intramedullary femoral cathy and nail in alignment. No dislocation seen.
== END 2023-05-10 17:15 | disposition home or self-care (01) ==
LOC: HO.HOSX 17:14
PROVIDERS: Visit Provider Physician Assistant
DX: S72.142D Displaced intertrochanteric fracture of left femur, subsequent encounter for closed fracture with routine healing (principal)
CPT/HCPCS: 73552

== ENCOUNTER 2023-06-21 08:36 | Outpatient (AMB) | payer OTHER, SELFPAY ==
[2022-12-29 07:43] VITALS: BP 102/50; BP 122/56; BP 134/66; BMI 34.3
--- NOTE | 2023-06-21 08:47 | A.OFFVIS_ITS ---
Intake Intake Visit Reasons: 6 wk f/u Lt hip IMN 04/14/23 w xray Intake Note: Chaka a 77 year old male presents today for a post operative left hip IMN, DOS 04/14/23 NE. Patient reports he is doing well however his main concern is bilateral knee pain with his right knee being the worse. He continues to work with PT. He feels his left leg is now longer. Allergies No Known Allergies Allergy (Verified 06/21/23 08:49) HPI 6 wk f/u Lt hip IMN 04/14/23 w xray HPI Details 77-year-old male who returns to the [facility] today for a follow-up of left hip IMN, 04/14/[address] Law. He continues to work with physical therapy as instructed and experiences as if he pulled muscle which is aggravated getting in and out of bed. He also feels his left leg is longer than the right. He currently states he has pain in his bilateral knee which is worse on his right knee. He also c/o hearing creaking sounds from his knee. He has a history of a knee surgery about 23 years ago. He has a history of diabetes. His sugar level is well controlled. [facility] Medical History (Updated 04/24/23 @ 00:03 by Chetna Kamara) Sleep apnea Hip fracture, left History of transcatheter aortic valve replacement (TAVR) Aortic stenosis Diabetes Atrial fibrillation Surgical History History of appendectomy History of arthroscopy of both knees Household Members: Spouse Housing: House Do you presently have visiting nurse or other home services: No Alcohol intake: former Patient Tobacco Use Status: Former Tobacco user service: No Review of Systems Const All systems reviewed & are unremarkable except as noted in HPI and below Physical Exam Extrem Other: Left hip: Incision well healed. Mild discomfort with hip flexion. He has full ROM of left hip. Pitting edema on LLE. Calf supple, nontender. NVI. Right knee: Skin intact, no erythema or joint effusion. Tenderness along the medial and lateral joint line. Full ROM with crepitus. Negative Melisa?s. No ligamentous laxity. NVI. Office Procedures Joint Injection/Drain Joint Injection/Drain Primary Site: right knee Prep: site was prepped using aseptic technique, ethochloride spray was applied and injection warnings given Injected: 80 mg of, DepoMedrol, with 8 mL of, 1% plain lidocaine and in the joint Approach Used: anterolateral Procedure: The patient tolerated the procedure well and there was some relief with the local anesthesia Coding 06376 - Glenohumeral/Tronchanteric Bursa/Intraarticular Procedure code (CPT) selection complete Results Reviewed Results Reviewed: X-rays of the left femur obtained in the office today show intact intermedullary nail with broken distal screw. He does have evidence of OA of left knee. Assessment & Plan Assessment & Plan (1) Intertrochanteric fracture of left femur: Code(s): S72.142A - Displaced intertrochanteric fracture of left femur, initial encounter for closed fracture Qualifiers: Encounter type: initial encounter Fracture alignment: displaced Fracture type: closed Qualified Code(s): S72.142A - Displaced intertrochanteric fracture of left femur, initial encounter for closed fracture Plan Images were reviewed with Dr. Law. At this time, we will continue with post- op management. He will continue working with physical therapy for gait training and strengthening. As for the right knee pain we decided to proceed with a corticosteroid injection. We discussed options today which include corticosteroid injection. They did consent to move forward with the right knee corticosteroid injection, which was tolerated well. I recommended rest, ice and elevation and OTC anti-inflammatories PRN for discomfort. If symptoms persist or worsens over the next 6-8 weeks, patient will contact the office, otherwise he will follow-up in 6 weeks with new x-rays of the left femur, sooner if needed. Orders: Orders XR femur LT 2V Today M79.606 - Pain in leg, unspecified Patient Instructions: Scribed for Chadwick Rojas PA-C, by Giovanni Gentile medical support specialist, on 06/21/2023 at 8:45 AM EST. Chadwick Soni PA-C, have personally reviewed and agree with the information entered by the scribe. Coding Level of Care Code Global (93213) Diagnoses Closed displaced intertrochanteric fracture of left femur, initial encounter S72.142A Encounter type: initial encounter Fracture alignment: displaced Fracture type: closed CPT Codes Coding - Joint 7: 51603 - Glenohumeral/Tronchanteric Bursa/Intraarticular ([id number])
== END 2023-06-21 09:35 | disposition home or self-care (01) ==
PROVIDERS: Visit Provider Physician Assistant
DX: S72.142A Displaced intertrochanteric fracture of left femur, initial encounter for closed fracture (principal); M25.561 Pain in right knee
CPT/HCPCS: 20610; 99024

== ENCOUNTER 2023-06-21 10:34 | Outpatient (REF) | payer OTHER, SELFPAY ==
[2022-12-29 07:43] VITALS: BP 102/50; BP 122/56; BP 134/66; BMI 34.3
--- NOTE | ~2023-06-21 | XR_ITS ---
EXAMINATION: XR FEMUR, LEFT CLINICAL INFORMATION: Pain COMPARISON: Left femur radiograph from 05/10/2023 TECHNIQUE: AP and lateral views of the left femur were obtained. FINDINGS: Status post placement of a left trochanteric femoral nail with single distal interlocking screw stabilizing a comminuted intratrochanteric fracture. There has been interval fracture of the distal interlocking screw with approximately 4 mm displacement of the screw fragments. Heterotopic ossification along the fracture site. Degenerative arthropathy of the knee. Joint space alignment are otherwise maintained. Soft tissues are unremarkable. XR/XR femur LT 2V IMPRESSION: 1. Status post placement of a left trochanteric femoral nail with single distal interlocking screw stabilizing a comminuted intratrochanteric fracture. There has been interval fracture of the distal interlocking screw with approximately 4 mm displacement of the screw fragments. 2. Heterotopic ossification along the fracture site. 3. Degenerative arthropathy of the knee.
== END 2023-06-21 10:35 | disposition home or self-care (01) ==
LOC: HO.HOSX 10:34
PROVIDERS: Visit Provider Physician Assistant
DX: M25.561 Pain in right knee (principal); S72.142D Displaced intertrochanteric fracture of left femur, subsequent encounter for closed fracture with routine healing
CPT/HCPCS: 20610; 73552; J1040

== ENCOUNTER 2023-08-02 08:37 | Outpatient (REF) | payer OTHER, SELFPAY ==
[2022-12-29 07:43] VITALS: BP 102/50; BP 122/56; BP 134/66; BMI 34.3
--- NOTE | ~2023-08-02 | XR_ITS ---
EXAMINATION: XR FEMUR, LEFT CLINICAL INFORMATION: Pain in leg. COMPARISON: 06/24/2023 TECHNIQUE: 2 AP and 3 crosstable lateral views of the femur. FINDINGS: The bones are diffusely demineralized. Degenerative changes on limited views of the lower lumbar spine and left sacroiliac joint. Moderate degenerative changes in the left hip with joint space narrowing and hypertrophic change. Redemonstration of left trochanteric femoral nail with single distal interlocking screw stabilizing a comminuted intertrochanteric fracture. Redemonstration of fracture of the distal interlocking screw with approximately 4 mm displacement of the frontal screw fragments. Abundant heterotopic ossification along the fracture site. Degenerative changes in the left knee. XR/XR femur LT 2V IMPRESSION: Redemonstration of left trochanteric femoral nail stabilizing a comminuted intertrochanteric fracture. Redemonstration of fracture of the distal interlocking screw with approximately 4 mm displacement of the frontal screw fragments.
== END 2023-08-02 08:38 | disposition home or self-care (01) ==
LOC: HO.HOSX 08:37
PROVIDERS: Visit Provider Physician Assistant
DX: S72.142D Displaced intertrochanteric fracture of left femur, subsequent encounter for closed fracture with routine healing (principal)
CPT/HCPCS: 73552

== ENCOUNTER 2023-08-02 13:20 | Outpatient (AMB) | payer OTHER, SELFPAY ==
[2022-12-29 07:43] VITALS: BP 102/50; BP 122/56; BP 134/66; BMI 34.3
--- NOTE | 2023-08-02 13:21 | MHC.OFFVIS ---
Intake Intake Visit Reasons: OV- 6 wk f/u Left hip IMN w/ xrays Intake Note: Chaka a 78 year old male presents today for a post operative left hip IMN, DOS 04/14/23 NE. Patient reports he is doing well, denies any hip pain. He states last visit he had an injection to his right knee that provided him with little relief. States that he uses a walker for support. Allergies No Known Allergies Allergy (Verified 08/02/23 13:40) HPI OV- 6 wk f/u Left hip IMN w/ xrays HPI Details 78-year-old male who returns to the office today for post-op left hip IMN, 04/14/[address] Law. He currently states he has no pain and is doing well overall. He finds difficulty getting up from the chair. He had a left hip injection in his last visit which provided him mild relief. He uses a walker for support. He has no other concerns today. [facility] Medical History (Updated 04/24/23 @ 00:03 by Chetna Kamara) Sleep apnea Hip fracture, left History of transcatheter aortic valve replacement (TAVR) Aortic stenosis Diabetes Atrial fibrillation Surgical History History of appendectomy History of arthroscopy of both knees Social History Household Members: Spouse Housing: House Do you presently have visiting nurse or other home services: No Alcohol intake: former Patient Tobacco Use Status: Former Tobacco user service: No Review of Systems Const All systems reviewed & are unremarkable except as noted in HPI and below Physical Exam Extrem Other: Left hip: No pain with ROM or hip flexion. He has good ROM of knee. NVI. Results Reviewed Results Reviewed: X-rays of the left femur obtained in the office today show intact intermedullary nail with broken distal screw. He does have evidence of OA of left knee. Assessment & Plan Assessment & Plan (1) Intertrochanteric fracture of left femur: Code(s): S72.142A - Displaced intertrochanteric fracture of left femur, initial encounter for closed fracture Qualifiers: Encounter type: initial encounter Fracture alignment: displaced Fracture type: closed Qualified Code(s): S72.142A - Displaced intertrochanteric fracture of left femur, initial encounter for closed fracture Plan He will continue increasing activity as tolerated. He continues to ambulate with a walker due to his knee pain. He can see me in the future for his knee injection, if necessary, otherwise follow-up as needed. Orders: Orders XR femur LT 2V Today M79.606 - Pain in leg, unspecified Medications: New celecoxib (Celebrex) 200 mg PO BID 60 caps 3RF 30 days Patient Instructions: Scribed for Chadwick Rojas PA-C, by Giovanni Gentile certified medical technician assistant, on 08/02/2023 at 1:30 PM EST. I, Chadwick Rojas PA-C, have personally reviewed and agree with the information entered by the scribe. Coding Level of Care Code Global (32359) Diagnoses Closed displaced intertrochanteric fracture of left femur, initial encounter S72.142A Encounter type: initial encounter Fracture alignment: displaced Fracture type: closed
== END 2023-08-02 13:56 | disposition home or self-care (01) ==
PROVIDERS: Visit Provider Physician Assistant
DX: S72.142A Displaced intertrochanteric fracture of left femur, initial encounter for closed fracture (principal)
CPT/HCPCS: 99214

== ENCOUNTER 2024-02-28 08:28 | Day surgery (SDC) | payer OTHER, SELFPAY ==
[2022-12-29 07:43] VITALS: BP 102/50; BP 122/56; BP 134/66; BMI 34.3
[2024-02-23 11:32] VITALS: BMI 36.2
--- NOTE | 2024-02-24 15:23 | P.CONAN_ITS ---
Documented by User: Clarice Cazares NP 02/24/24 15:25 HPI - Anesthesia Eval Consult details Narrative: 78yo M for Right Cataract Extraction IOL Insertion No previous cataract on file s/p TAVR 2021 Xarelto for afib PMFSH Active Problems Active Problems: All Active Problems Fall (Acute) Past Medical History Medical History History of cardioversion History of blood transfusion Osteoarthritis Iron deficiency anemia History of GI bleed Chronic kidney disease (CKD) Depression Anxiety Chronic cor pulmonale Cataracts, bilateral Sleep apnea Hip fracture, left History of transcatheter aortic valve replacement (TAVR) Aortic stenosis Diabetes Atrial fibrillation Family History Family history of problems with anesthesia: No Surgical History Surgical History History of surgery (04/14/23) History of esophagogastroduodenoscopy (EGD) Hx of cardiac cath Hx of aortic valve replacement (~2021) History of appendectomy History of arthroscopy of both knees History of Problems with Anesthesia: No Social History Social History Household Members: Spouse Housing: House Are you a primary customer care associate to a significant other at home: No Do you presently have visiting nurse or other home services: No Alcohol intake: former Patient Tobacco Use Status: Former Tobacco user Tobacco use type: Cigarette Smoked in Last 30 Days: No Use of substances other than those prescribed or required for medical reasons: No Have you been hit, kicked, punched, or otherwise hurt by someone within the past year? If so, by whom?: No Are you DNR?: No Advance Directives: No Advance Directives Information Provided: Yes Advance Directives on File: No Recently lost weight without trying: No Nutrition Risks: Surgical patient >75years service: No Meds Allergies Allergy/AdvReac Type Severity Reaction Status Date / Time lisinopril AdvReac Cough Verified 02/23/24 10:43 Home Medications ?Medication ?Instructions ?Recorded ?Confirmed ?Last Taken ?Type amiodarone 200 mg tablet 100 mg PO DAILY 04/12/23 02/23/24 04/11/23 History ferrous sulfate 324 mg (65 mg 324 mg PO BID 04/12/23 02/23/24 Unknown History iron) tablet,delayed release furosemide 40 mg tablet 40 mg PO BID 04/12/23 02/23/24 04/11/23 History metoprolol tartrate 37.5 mg tablet 37.5 mg PO BID 04/12/23 02/23/24 04/11/23 History rivaroxaban 20 mg tablet (Xarelto) 20 mg PO DAILY@1700 04/12/23 02/23/24 04/11/23 History simvastatin 20 mg tablet 20 mg PO DAILY 04/12/23 02/23/24 04/11/23 History Exam Height,Weight and Vital Signs: Height 6 ft 1.5 in Weight 126.099 kg Assessment and Plan Assessment Anesthesia Assessment: Chart Reviewed Final Anesthetic Review Family History of Problems with Anesthesia: No History of Problems with Anesthesia: No Documented by User: Kayla Ardon MD 02/28/24 10:04 [facility] Past Medical History Medical History History of cardioversion History of blood transfusion Osteoarthritis Iron deficiency anemia History of GI bleed Chronic kidney disease (CKD) Depression Anxiety Chronic cor pulmonale Cataracts, bilateral Sleep apnea Hip fracture, left History of transcatheter aortic valve replacement (TAVR) Aortic stenosis Diabetes Atrial fibrillation Surgical History Surgical History History of surgery (04/14/23) History of esophagogastroduodenoscopy (EGD) Hx of cardiac cath Hx of aortic valve replacement (~2021) History of appendectomy History of arthroscopy of both knees Social History Social History Household Members: Spouse Housing: House Are you a primary customer care associate to a significant other at home: No Do you presently have visiting nurse or other home services: No Alcohol intake: former Patient Tobacco Use Status: Former Tobacco user Tobacco use type: Cigarette Smoked in Last 30 Days: No Use of substances other than those prescribed or required for medical reasons: No Have you been hit, kicked, punched, or otherwise hurt by someone within the past year? If so, by whom?: No Are you DNR?: No Advance Directives: No Advance Directives Information Provided: Yes Advance Directives on File: No Recently lost weight without trying: No Nutrition Risks: Surgical patient >75years service: No Meds Allergies Allergy/AdvReac Type Severity Reaction Status Date / Time lisinopril AdvReac Cough Verified 02/23/24 10:43 Home Medications ?Medication ?Instructions ?Recorded ?Confirmed ?Last Taken ?Type amiodarone 200 mg tablet 100 mg PO DAILY 04/12/23 02/23/24 04/11/23 History ferrous sulfate 324 mg (65 mg 324 mg PO BID 04/12/23 02/23/24 Unknown History iron) tablet,delayed release furosemide 40 mg tablet 40 mg PO BID 04/12/23 02/23/24 04/11/23 History metoprolol tartrate 37.5 mg tablet 37.5 mg PO BID 04/12/23 02/23/24 04/11/23 History rivaroxaban 20 mg tablet (Xarelto) 20 mg PO DAILY@1700 04/12/23 02/23/24 04/11/23 History simvastatin 20 mg tablet 20 mg PO DAILY 04/12/23 02/23/24 04/11/23 History Exam Airway Mallampati Class: II TM Dist: >3cm Neck ROM: Limited Heart: rrr Lungs: cta Assessment and Plan Assessment Anesthesia Assessment: Anesthesia Plan Discussed Final Anesthetic Review NPO: Yes ASA Class: III Final Preanesthetic Review: No Changes in Pt Med Stat, Meds/Allgs Chart Reviewed, Consent Obtained/Reviewed and Anes Risks/Benef Reviewed Patient Risk: Intermediate Procedure Risk: Low Anesthetic Plan Anesthetic Plan: MAC: Disposition: Standard PACU
[2024-02-28 08:50] VITALS: BP 154/68; PULSE 53; RESP 18; TEMP 36.9; O2SAT 96
[2024-02-28] MEDS: Cyclopentolate 1 % Ophth Sol 2 ML DRPBTL 1 DROP EYE-RIGHT ×3 (08:57→09:00)
[2024-02-28] MEDS: Tetracaine HCl/PF 0.5% Oph Sol 4 ML DROPS 1 DROP EYE-RIGHT (08:57)
[2024-02-28] MEDS: Lactated Ringers 500 ML 50 ML IV (08:57)
[2024-02-28] MEDS: Phenylephrine HCL 2.5% Oph SoL 2 ML BOTTLE 1 DROP EYE-RIGHT ×3 (08:57→08:59)
[2024-02-28] MEDS: Ketorolac Tromethamine 0.5% Op 10 ML DROPS 1 DROP EYE-RIGHT ×3 (08:58→08:59)
[2024-02-28] MEDS: Tropicamide 1 % Ophth Sol 3 ML BTL 1 DROP EYE-RIGHT ×3 (08:58→09:00)
--- NOTE | 2024-02-28 10:11 | PC.NURSE ---
anesthesia aware of poc results no new orders
--- NOTE | 2024-02-28 10:19 | P.PCNO_ITS ---
Ophthalmology Procedure Procedure Date of Service: 02/28/24 Ophthalmology Viscoelastic: Healon Duet Dual Pack Pro Ophthalmology Lenses: IOL Acrysof MP - [id number] (20.5) Procedure Notes: PREOPERATIVE DIAGNOSIS: Decreased visual acuity right eye secondary to cataract POSTOPERATIVE DIAGNOSIS: Same PROCEDURE: Right cataract extraction with intraocular lens insertion SURGEON: César Ledbetter M.D. ANESTHESIA: Topical/MAC ESTIMATED BLOOD LOSS: None COMPLICATIONS: None After obtaining informed consent, the patient was brought to the operating room suite and placed in the supine position. After adequate sedation per anesthesia, topical drops of Tetracaine were given to the right eye. The eye was then prepped and draped in the usual sterile fashion. The operating room microscope was then positioned over the operative eye and a lid speculum placed. A paracentesis was created. Viscoelastic was then instilled into the anterior chamber. A three plane incision was then created temporally, utilizing a 2.85 mm keratome. Capsulotomy forceps were then utilized to create a circular tear capsulotomy. Hydrodissection and hydrodelineation were carried out until adequate mobilization of the nucleus occurred. Phacoemulsification was then utilized to remove the dense central nu cleus followed by removal of the cortical material utilizing the automated aspiration irrigation unit. Viscoelastic was instilled into the posterior capsular bag followed by placement of a posterior chamber intraocular lens without difficulty. The residual Viscoelastic was then removed utilizing the automated IA machine. The wound was checked and found to be watertight. The patient tolerated the procedure well and the lid speculum was removed. Intracameral injection of Vigamox 0.1 mL followed by a subtenon injection of Kenalog-40 0.2 mL were administered. The patient will be seen in the a.m.
--- NOTE | 2024-02-28 10:19 | MHC.SHP ---
Pre-Procedural Eval Section A - 24 Hr Update-Section A only Date of Service: 02/28/24 The patient is an INPATIENT: No Changes since office visit: No Cold of Flu in the past 2 weeks, No New Medical Problems, No Changes in Medication and No Patient answered all questions The patient has been examined within 24 hours of the surgical procedure. The History & Physical has been completed within 30 days and I have reviewed it.: Yes Section B - Complete if H&P > 30 days Chief Complaint: Age-related nuclear cataract, right eye Allergies: Allergies Allergy/AdvReac Type Severity Reaction Status Date / Time lisinopril AdvReac Cough Verified 02/23/24 10:43 Plan Diagnosis/Plan: Unchanged I have reviewed the history and physical and performed a pertinent physical examination on my patient. No changes have occurred unless specified. Time Spent With Patient Time: Total time managing care of this patient today ____ minutes.
[2024-02-28 10:47] VITALS: BP 133/65; PULSE 51; RESP 16; TEMP 36.1; O2SAT 99
== END 2024-02-28 10:50 | disposition home or self-care (01) ==
PROVIDERS: PCP Internal Medicine; Visit Provider Ophthalmology
PROC: (CPT 66985; principal; 2024-02-28 10:00)
DX: H25.11 Age-related nuclear cataract, right eye (principal); H52.4 Presbyopia; Z83.511 Family history of glaucoma; H43.393 Other vitreous opacities, bilateral; H18.413 Arcus senilis, bilateral; H11.153 Pinguecula, bilateral; I10 Essential (primary) hypertension; E78.00 Pure hypercholesterolemia, unspecified; I48.91 Unspecified atrial fibrillation; Z95.2 Presence of prosthetic heart valve; G47.33 Obstructive sleep apnea (adult) (pediatric); E11.9 Type 2 diabetes mellitus without complications; F41.9 Anxiety disorder, unspecified; Z79.01 Long term (current) use of anticoagulants; Z79.899 Other long term (current) drug therapy; Z99.89 Dependence on other enabling machines and devices; Z88.8 Allergy status to other drugs, medicaments and biological substances; Z87.891 Personal history of nicotine dependence
CPT/HCPCS: 66984; J2250; J3301; V2630

== ENCOUNTER 2024-03-13 10:21 | Day surgery (SDC) | payer OTHER, SELFPAY ==
[2022-12-29 07:43] VITALS: BP 102/50; BP 122/56; BP 134/66; BMI 34.3
[2024-02-23 11:38] VITALS: BMI 36.2
--- NOTE | 2024-03-09 12:50 | HO.ANESPROP2 ---
Documented by User: Clarice Cazares NP 03/09/24 12:51 HPI - Anesthesia Eval Consult details Narrative: 78yo M for Left Cataract Extraction IOL Insertion Right eye 02/28/24: Midaz 2 Xarelto for afib s/p TAVR PMF Active Problems Active Problems: All Active Problems Fall (Acute) Past Medical History Medical History History of cardioversion History of blood transfusion Osteoarthritis Iron deficiency anemia History of GI bleed Chronic kidney disease (CKD) Depression Anxiety Chronic cor pulmonale Cataracts, bilateral Sleep apnea Hip fracture, left History of transcatheter aortic valve replacement (TAVR) Aortic stenosis Diabetes Atrial fibrillation Family History Family history of problems with anesthesia: No Surgical History Surgical History (Updated 03/01/24 @ 15:33 by Margaret Taveras RN) Hx of right cataract extraction (02/28/24) History of surgery (04/14/23) History of esophagogastroduodenoscopy (EGD) Hx of cardiac cath Hx of aortic valve replacement (~2021) History of appendectomy History of arthroscopy of both knees History of Problems with Anesthesia: No Social History Social History Household Members: Spouse Housing: House Are you a primary healthcare account manager to a significant other at home: No Do you presently have visiting nurse or other home services: No Alcohol intake: former Patient Tobacco Use Status: Former Tobacco user Tobacco use type: Cigarette Smoked in Last 30 Days: No Use of substances other than those prescribed or required for medical reasons: No Have you been hit, kicked, punched, or otherwise hurt by someone within the past year? If so, by whom?: No Are you DNR?: No Advance Directives: No Advance Directives Information Provided: Yes Advance Directives on File: No Recently lost weight without trying: No Nutrition Risks: Surgical patient >75years Poor oral hygiene: No service: No Meds Allergies Allergy/AdvReac Type Severity Reaction Status Date / Time lisinopril AdvReac Cough Verified 02/23/24 10:43 Home Medications ?Medication ?Instructions ?Recorded ?Confirmed ?Last Taken ?Type amiodarone 200 mg tablet 100 mg PO DAILY 04/12/23 02/23/2404/11/23 History ferrous sulfate 324 mg (65 mg 324 mg PO BID 04/12/23 02/23/24 Unknown History iron) tablet,delayed release furosemide 40 mg tablet 40 mg PO BID 04/12/23 02/23/24 04/11/23 History metoprolol tartrate 37.5 mg tablet 37.5 mg PO BID 04/12/23 02/23/24 04/11/23 History rivaroxaban 20 mg tablet (Xarelto) 20 mg PO DAILY@1700 04/12/23 02/23/24 04/11/23 History simvastatin 20 mg tablet 20 mg PO DAILY 04/12/23 02/23/24 04/11/23 History Exam Height,Weight and Vital Signs: Height 6 ft 1.5 in Weight 126.099 kg Assessment and Plan Assessment Anesthesia Assessment: Chart Reviewed Final Anesthetic Review Family History of Problems with Anesthesia: No History of Problems with Anesthesia: No Documented by User: Karishma Rivas MD 03/13/24 10:53 PMFSH Past Medical History Medical History History of cardioversion History of blood transfusion Osteoarthritis Iron deficiency anemia History of GI bleed Chronic kidney disease (CKD) Depression Anxiety Chronic cor pulmonale Cataracts, bilateral Sleep apnea Hip fracture, left History of transcatheter aortic valve replacement (TAVR) Aortic stenosis Diabetes Atrial fibrillation Surgical History Surgical History (Updated 03/01/24 @ 15:33 by Margaret Taveras RN) Hx of right cataract extraction (02/28/24) History of surgery (04/14/23) History of esophagogastroduodenoscopy (EGD) Hx of cardiac cath Hx of aortic valve replacement (~2021) History of appendectomy History of arthroscopy of both knees Social History Social History Household Members: Spouse Housing: House Are you a primary healthcare account manager to a significant other at home: No Do you presently have visiting nurse or other home services: No Alcohol intake: former Patient Tobacco Use Status: Former Tobacco user Tobacco use type: Cigarette Smoked in Last 30 Days: No Use of substances other than those prescribed or required for medical reasons: No Have you been hit, kicked, punched, or otherwise hurt by someone within the past year? If so, by whom?: No Are you DNR?: No Advance Directives: No Advance Directives Information Provided: Yes Advance Directives on File: No Recently lost weight without trying: No Nutrition Risks: Surgical patient >75years Poor oral hygiene: No service: No Meds Allergies Allergy/AdvReac Type Severity Reaction Status Date / Time lisinopril AdvReac Cough Verified 02/23/24 10:43 Home Medications ?Medication ?Instructions ?Recorded ?Confirmed ?Last Taken ?Type amiodarone 200 mg tablet 100 mg PO DAILY 04/12/23 02/23/24 04/11/23 History ferrous sulfate 324 mg (65 mg 324 mg PO BID 04/12/23 02/23/24 Unknown History iron) tablet,delayed release furosemide 40 mg tablet 40 mg PO BID 04/12/23 02/23/24 04/11/23 History metoprolol tartrate 37.5 mg tablet 37.5 mg PO BID 04/12/23 02/23/24 04/11/23 History rivaroxaban 20 mg tablet (Xarelto) 20 mg PO DAILY@1700 04/12/23 02/23/24 04/11/23 History simvastatin 20 mg tablet 20 mg PO DAILY 04/12/23 02/23/24 04/11/23 History Exam Airway Mallampati Class: III TM Dist: >3cm Neck ROM: Full Assessment and Plan Assessment Anesthesia Assessment: Anesthesia Plan Discussed Final Anesthetic Review NPO: Yes ASA Class: III Final Preanesthetic Review: No Changes in Pt Med Stat, Meds/Allgs Chart Reviewed, Consent Obtained/Reviewed and Anes Risks/Benef Reviewed Patient Risk: High Procedure Risk: Low Anesthetic Plan Anesthetic Plan: MAC: Disposition: Standard PACU
[2024-03-13] MEDS: Lactated Ringers 500 ML 50 ML IV (10:44)
[2024-03-13] MEDS: Tetracaine HCl/PF 0.5% Oph Sol 4 ML DROPS 1 DROP EYE-LEFT (10:44)
[2024-03-13] MEDS: Phenylephrine HCL 2.5% Oph SoL 2 ML BOTTLE 1 DROP EYE-LEFT ×3 (10:45→10:58)
[2024-03-13] MEDS: Cyclopentolate 1 % Ophth Sol 2 ML DRPBTL 1 DROP EYE-LEFT ×3 (10:45→10:58)
[2024-03-13] MEDS: Tropicamide 1 % Ophth Sol 3 ML BTL 1 DROP EYE-LEFT ×3 (10:45→10:58)
[2024-03-13] MEDS: Ketorolac Tromethamine 0.5% Op 10 ML DROPS 1 DROP EYE-LEFT ×3 (10:46→10:58)
[2024-03-13 11:00] VITALS: BP 147/69; PULSE 52; RESP 18; TEMP 36.7; O2SAT 97
--- NOTE | 2024-03-13 11:10 | PC.NURSE ---
patient does not take medications for diabetes no POC required.
--- NOTE | 2024-03-13 12:12 | MHC.SHP ---
Pre-Procedural Eval Section A - 24 Hr Update-Section A only Date of Service: 03/13/24 The patient is an INPATIENT: No Changes since office visit: No Cold of Flu in the past 2 weeks, No New Medical Problems, No Changes in Medication and No Patient answered all questions The patient has been examined within 24 hours of the surgical procedure. The History & Physical has been completed within 30 days and I have reviewed it.: Yes Section B - Complete if H&P > 30 days Chief Complaint: Age-related nuclear cataract, left eye Allergies: Allergies Allergy/AdvReac Type Severity Reaction Status Date / Time lisinopril AdvReac Cough Verified 03/13/24 11:02 Plan Diagnosis/Plan: Unchanged I have reviewed the history and physical and performed a pertinent physical examination on my patient. No changes have occurred unless specified. Time Spent With Patient Time: Total time managing care of this patient today ____ minutes.
--- NOTE | 2024-03-13 12:12 | HO.PNOPHT ---
Ophthalmology Procedure Procedure Date of Service: 03/13/24 Ophthalmology Viscoelastic: Healon Duet Dual Pack Pro Ophthalmology Lenses: IOL Acrysof MP - [id number] (21) Procedure Notes: PREOPERATIVE DIAGNOSIS: Decreased visual acuity left eye secondary to cataract POSTOPERATIVE DIAGNOSIS: Same PROCEDURE: Left cataract extraction with intraocular lens insertion SURGEON: César Ledbetter M.D. ANESTHESIA: Topical/MAC ESTIMATED BLOOD LOSS: None COMPLICATIONS: None After obtaining informed consent, the patient was brought to the operation room suite and placed in the supine position. After adequate sedation per anesthesia, topical drops of Tetracaine were given to the left eye. The eye was then prepped and draped in the usual sterile fashion. The operating room microscope was then positioned over the operative eye and a lid speculum placed. A paracentesis was created. Viscoelastic was then instilled into the anterior chamber. A three plane incision was then created temporally, utilizing a 2.85 mm keratome. Capsulotomy forceps were then utilized to create a circular tear capsulotomy. Hydrodissection and hydrodelineation were carried out until adequate mobilization of the nucleus occurred. Phacoemulsification was then utilized to remove the dense central nucleus followed by removal of the cortical material utilizing the automated aspiration irrigation unit. Viscoat elastic was instilled into the posterior capsular bag followed by placement of a posterior chamber intraocular lens without difficulty. The residual Viscoat elastic was then removed utilizing the automated IA machine. The wound was check and found to be watertight. The patient tolerated the procedure well and the lid speculum was removed. Intracameral injection of Vigamox 0.1 mL followed by a subtenon injection of Kenalog-40 0.2 mL were administered. The patient will be seen in the a.m.
[2024-03-13 12:39] VITALS: BP 122/56; PULSE 51; RESP 14; TEMP 36.6; O2SAT 100
[2024-03-13 12:54] VITALS: BP 120/51; PULSE 50; RESP 16; TEMP 36.6; O2SAT 99
== END 2024-03-13 12:55 | disposition home or self-care (01) ==
PROVIDERS: PCP Internal Medicine; Visit Provider Ophthalmology
PROC: (CPT 66985; principal; 2024-03-13 11:40)
DX: H25.12 Age-related nuclear cataract, left eye (principal); H54.7 Unspecified visual loss; E11.22 Type 2 diabetes mellitus with diabetic chronic kidney disease; N18.9 Chronic kidney disease, unspecified; I48.91 Unspecified atrial fibrillation; Z95.2 Presence of prosthetic heart valve; Z87.891 Personal history of nicotine dependence; Z79.01 Long term (current) use of anticoagulants; Z79.02 Long term (current) use of antithrombotics/antiplatelets; Z79.899 Other long term (current) drug therapy
CPT/HCPCS: 66984; J2250; J3301; V2630